=== PATIENT | female | born 1990 | race Hispanic/Latino ===

== ENCOUNTER 2018-10-16 10:47 | Emergency (ER) | payer MEDICAID ==
[2018-10-16 12:44] LABS: HCG Qualitative,Urine Negative (Negative)
[2018-10-16 12:47] LABS: Basophils % (Auto) 0.2 % (0.0-1.8); Eosinophils # (Auto) 0.1 K/mm3 (0.0-0.4); Eosinophils % (Auto) 0.8 % (0.0-4.3); Hematocrit 39.7 % (30.3-42.9); Hemoglobin 13.6 gm/dl (10.1-14.3); Lymphocytes # (Auto) 2.1 K/mm3 (1.2-5.4); Lymphocytes % (Auto) 13.7 % (13.4-35.0); Mean Corpuscular HGB Conc 34 % (30-34); Mean Corpuscular Volume 90 fl (79-97); Monocytes # (Auto) 1.2 K/mm3 (0.0-0.8); Monocytes % (Auto) 7.9 % (0.0-7.3); Platelet Count 310 K/mm3 (140-440); Red Cell Distribution Width 13.5 % (13.2-15.2)
[2018-10-16] MEDS ORDERED: NACL 0.9% 1000 ML 1,000 ML IV ONE ×2 (12:50→12:53)
[2018-10-16] MEDS ORDERED: SUBLIMAZE IV ONE (12:50)
[2018-10-16] MEDS ORDERED: ZOFRAN IV ONE (12:50)
[2018-10-16 12:51] LABS: Bacteria,Urine 1+ /HPF (Negative); Bilirubin,Urine NEG (Negative); Blood,Urine NEG (Negative); Color,Urine Yellow (Yellow); Mucus,Urine FEW /HPF; Protein,Urine <15 mg/dL mg/dL (Negative); Urobilinogen,Urine < 2.0 mg/dL (<2.0)
--- NOTE | 2018-10-16 12:56 | Emergency Department Report ---
HPI - General Chief Complaint: Abdominal Pain Time Seen by Provider: 10/16/18 12:41 - HPI HPI: Room 24 The patient is a 28-year-old female presented with a chief complaint of abdominal pain. The patient has history of Crohn's disease and states she was placed on a steroid taper last week. Patient states the past 3 days if symptoms return which includes nausea vomiting or inability to tolerate anything by mouth and frequent diarrhea. Patient admits to chills and subjective fever. The patient states she developed dizziness last night causing her to fall down the stairs. 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 - Family History Family history: no significant - Social History Smoking Status: Never Smoker Substance Use Type: None (denies illicit drug use), Alcohol (occasional) - Medications Home Medications: Home Medications Medication Instructions Recorded Confirmed Last Taken Type Norethindrone AC-Eth Estradiol 1 each PO DAILY 02/21/16 04/21/16 07/09/16 History [Junel 1.5 mg-30 Mcg Tablet] levETIRAcetam [Keppra TAB] 1,000 mg PO BID 30 Days tablet 04/24/16 Unknown Rx Famotidine [Pepcid] 20 mg PO BID #20 tablet 07/10/16 Unknown Rx HYDROcodone/APAP 5-325 [[place] 1 each PO Q6HR PRN #10 tablet 07/10/16 Unknown Rx 5/325] Metoclopramide HCl [Reglan TAB] 5 mg PO BID PRN #20 tablet 07/10/16 Unknown Rx Ondansetron [Zofran Odt] 4 mg PO Q8H PRN #10 tab.rapdis 07/10/16 Unknown Rx Amoxicillin 500 mg PO BID #14 capsule 10/16/18 Unknown Rx Diphenoxylate/Atropine [Lomotil] 2 tab PO QID PRN #20 tablet 10/16/18 Unknown Rx HYDROcodone/APAP 5-325 [[place] 1 - 2 each PO Q6HR PRN #14 tablet 10/16/18 Unknown Rx 5/325] Ondansetron [Zofran ODT TAB] 8 mg PO Q8HR #20 tab.rapdis 10/16/18 Unknown Rx ED Review of Systems ROS: Stated complaint: CROHN'S FLARE UP Other details as noted in HPI Constitutional: chills, fever (subjective) Eyes: denies: eye pain ENT: dental pain Respiratory: no symptoms reported Cardiovascular: denies: chest pain Endocrine: no symptoms reported Gastrointestinal: abdominal pain, nausea, vomiting, diarrhea Genitourinary: denies: dysuria Musculoskeletal: back pain Neurological: denies: headache Physical Exam - Physical Exam Vital Signs: Vital Signs 10/16/18 11:05 Temperature 98.3 F Pulse Rate 113 H Respiratory 20 Rate Blood Pressure 130/74 O2 Sat by Pulse 95 Oximetry Physical Exam: GENERAL: The patient is well-developed well-nourished female lying on stretcher not appearing to be in acute distress. [] HEENT: Normocephalic. Atraumatic. Extraocular motions are intact. Patient has moist mucous membranes. Broken tooth #32 NECK: Supple. Trachea midline CHEST/LUNGS: Clear to auscultation. There is no respiratory distress noted. HEART/CARDIOVASCULAR: Regular. There is no tachycardia. There is no gallop rub or murmur. ABDOMEN: Abdomen is soft, with tenderness to palpation in the midepigastric, left upper quadrant and left lower quadrant. Patient has normal bowel sounds. There is no abdominal distention. SKIN: There is no rash. There is no edema. There is no diaphoresis. NEURO: The patient is awake, alert, and oriented. The patient is cooperative. The patient has normal speech MUSCULOSKELETAL: There is no evidence of acute injury. ED Course Vital Signs 10/16/18 11:05 Temperature 98.3 F Pulse Rate 113 H Respiratory 20 Rate Blood Pressure 130/74 O2 Sat by Pulse 95 Oximetry ED Medical Decision Making - Lab Data Result diagrams: 10/16/18 12:15 10/16/18 12:12 Laboratory Tests 10/16/18 10/16/18 10/16/18 12:12 12:14 12:14 WBC RBC Hgb Hct MCV MCH MCHC RDW Plt Count Lymph % (Auto) Brooke % (Auto) Eos % (Auto) Baso % (Auto) Lymph # Brooke # Eos # Baso # Seg Neutrophils % Seg Neutrophils # Sodium 137 Potassium 4.0 Chloride 103.4 Carbon Dioxide 21 L Anion Gap 17 BUN 7 Creatinine 0.5 L Estimated GFR > 60 BUN/Creatinine Ratio 14 Glucose 99 Calcium 9.0 Total Bilirubin 0.60 AST 13 ALT 20 Alkaline Phosphatase 89 Total Protein 7.5 Albumin 4.0 Albumin/Globulin Ratio 1.1 Urine Color Yellow Urine Turbidity Clear Urine pH 5.0 Ur Specific Reynolds 1.021 Urine Protein <15 mg/dl Urine Glucose (UA) Neg Urine Ketones Neg Urine Blood Neg Urine Nitrite Neg Urine Bilirubin Neg Urine Urobilinogen < 2.0 Ur Leukocyte Esterase Neg Urine WBC (Auto) 4.0 Urine RBC (Auto) 3.0 U Epithel Cells (Auto) 4.0 Urine Bacteria (Auto) 1+ Urine Mucus Few Urine HCG, Qual Negative 10/16/18 12:15 WBC 15.5 H RBC 4.40 Hgb 13.6 Hct 39.7 MCV 90 MCH 31 MCHC 34 RDW 13.5 Plt Count 310 Lymph % (Auto) 13.7 Brooke % (Auto) 7.9 H Eos % (Auto) 0.8 Baso % (Auto) 0.2 Lymph # 2.1 Brooke # 1.2 H Eos # 0.1 Baso # 0.0 Seg Neutrophils % 77.4 H Seg Neutrophils # 12.0 H Sodium Potassium Chloride Carbon Dioxide Anion Gap BUN Creatinine Estimated GFR BUN/Creatinine Ratio Glucose Calcium Total Bilirubin AST ALT Alkaline Phosphatase Total Protein Albumin Albumin/Globulin Ratio Urine Color Urine Turbidity Urine pH Ur Specific Reynolds Urine Protein Urine Glucose (UA) Urine Ketones Urine Blood Urine Nitrite Urine Bilirubin Urine Urobilinogen Ur Leukocyte Esterase Urine WBC (Auto) Urine RBC (Auto) U Epithel Cells (Auto) Urine Bacteria (Auto) Urine Mucus Urine HCG, Qual - Radiology Data Radiology results: report reviewed (CT abdomen and pelvis), image reviewed (CT abdomen and pelvis) [facility] [address] [place] [address] Cat Scan Report Signed Patient: ABDIRAHMAN KITCHEN MR#: [id number] : 1990 Acct:[id number] Age/Sex: 28 / F ADM Date: 10/16/18 Loc: ED Attending Dr: Ordering Physician: PAUL BADILLO MD Date of Service: 10/16/18 Procedure(s): CT abdomen pelvis wo con Accession Number(s): [id number] cc: PAUL BADILLO MD FINAL REPORT EXAM: CT ABDOMEN PELVIS WO CON HISTORY: left-sided abdominal pain. History of Crohn's COMPARISON: None. TECHNIQUE: Multiple contiguous axial images were obtained from the lung bases to the pubic symphysis without administration of IV contrast. Reformatted sagittal and coronal images were available for review. FINDINGS: Lung bases: Normal. Visualized heart and mediastinum: Normal noncontrast appearance. Liver: Normal noncontrast appearance. Spleen: Normal noncontrast appearance. 1.6 centimeter accessory splenule. Pancreas: Normal noncontrast appearance. Gallbladder and Biliary Tree: The gallbladder is surgically absent. There is no biliary ductal dilatation. Adrenal glands: Normal. Kidneys: Normal. No renal or ureteral calcifications. No hydronephrosis. Bladder: Normal. Pelvic organs: Normal. Bowel: No focal wall thickening. No evidence of obstruction. Normal appendix wi thout surrounding inflammatory change. Peritoneum: No significant mesenteric adenopathy. No free air or free fluid. Vasculature: Normal appearance of the abdominal aorta, inferior vena cava, and portal venous system. No suspicious osseous lesions. No acute fracture or dislocation. Bones and soft tissues: No suspicious osseous lesions. No acute fracture or dislocation. Soft tissues are normal. IMPRESSION: No acute intra-abdominal pathology. No evidence for bowel obstruction. No focal wall thickening or inflammatory change. Transcribed By: LOKESH Dictated By: SAUL SALINAS MD Electronically Authenticated By: SAUL SALINAS MD Signed Date/Time: 10/16/18 135 DD/ 52 TD/TT: 10/16/18 1353 - Differential Diagnosis Crohn's flare, small bowel obstruction, gastroenteritis, UTI Critical care attestation.: If time is entered above; I have spent that time in minutes in the direct care of this critically ill patient, excluding procedure time. ED Disposition Clinical Impression: Acute abdominal pain, Crohns disease, Nausea vomiting and diarrhea Disposition: TO HOME OR SELFCARE Is pt being admited?: No Does the pt Need Aspirin: No Condition: Stable Instructions: Abdominal Pain (ED) Additional Instructions: Return to the emergency department immediately should you develop worsening symptoms, fever, inability to tolerate food or liquid or any other concerns. Prescriptions: Amoxicillin 500 mg PO BID #14 capsule Diphenoxylate/Atropine [Lomotil] 2 tab PO QID PRN #20 tablet PRN Reason: Diarrhea HYDROcodone/APAP 5-325 [Rich[place] 5/325] 1 - 2 each PO Q6HR PRN #14 tablet PRN Reason: Pain Ondansetron [Zofran ODT TAB] 8 mg PO Q8HR #20 tab.gardenia Referrals: [facility] MD ANTONIA [Primary Care Provider] - 3-5 Days CORNELIO VICENTE MD [Staff Physician] - 3-5 Days Time of Disposition: 14:42
[2018-10-16 13:08] LABS: Alanine Aminotransferase 20 units/L (7-56); BUN/Creatinine Ratio 14; Blood Urea Nitrogen 7 mg/dL (7-17); Hemolysis Index 23
[2018-10-16] MEDS ORDERED: DILAUDID IV ONE (13:37)
--- NOTE | 2018-10-16 13:55 | Cat Scan Report ---
FINAL REPORT EXAM: CT ABDOMEN PELVIS WO CON HISTORY: left-sided abdominal pain. History of Crohn's COMPARISON: None. TECHNIQUE: Multiple contiguous axial images were obtained from the lung bases to the pubic symphysis without administration of IV contrast. Reformatted sagittal and coronal images were available for re view. FINDINGS: Lung bases: Normal. Visualized heart and mediastinum: Normal noncontrast appearance. Liver: Normal noncontrast appearance. Spleen: Normal noncontrast appearance. 1.6 centimeter accessory splenule. Pancreas: Normal noncontrast appearance. Gallbladder and Biliary Tree: The gallbladder is surgically absent. There is no biliary ductal dilata tion. Adrenal glands: Normal. Kidneys: Normal. No renal or ureteral calcifications. No hydronephrosis. Bladder: Normal. Pelvic organs: Normal. Bowel: No focal wall thickening. No evidence of obstruction. Normal appendix without surrounding infl ammatory change. Peritoneum: No significant mesenteric adenopathy. No free air or free fluid. Vasculature: Normal appearance of the abdominal aorta, inferior vena cava, and portal venous system. No suspicious osseous lesions. No acute fracture or dislocation. Bones and soft tissues: No suspicious osseous lesions. No acute fracture or dislocation. Soft tissues are normal. IMPRESSION: No acute intra-abdominal pathology. No evidence for bowel obstruction. No focal wall thickening or inflammatory change.
[2018-10-16 14:22] VITALS: BP 124/82
== END 2018-10-16 14:50 | disposition home or self-care (01) ==
LOC: ED 10:47
DX: K50.90 Crohn's disease, unspecified, without complications (principal); F41.9 Anxiety disorder, unspecified; J45.909 Unspecified asthma, uncomplicated; Z90.49 Acquired absence of other specified parts of digestive tract; Z88.1 Allergy status to other antibiotic agents; Z91.09 Other allergy status, other than to drugs and biological substances
CPT/HCPCS: 36415; 74176; 80053; 81001; 81025; 85025; 96361; 96374; 96375; 99284; J1170; J2405; J3010; J7030

== ENCOUNTER 2018-10-16 19:33 | Inpatient (IN) | payer MEDICAID ==
[2018-10-16] MEDS ORDERED: NACL 0.9% 500 ML 500 ML IV ONE (19:50)
[2018-10-16 20:32] LABS: Basophils # (Auto) 0.2 K/mm3 (0.0-0.1); Hematocrit 37.5 % (30.3-42.9); Hemoglobin 12.7 gm/dl (10.1-14.3); Lymphocytes # (Auto) 0.8 K/mm3 (1.2-5.4); Lymphocytes % (Auto) 4.2 % (13.4-35.0); Mean Corpuscular HGB Conc 34 % (30-34); Mean Corpuscular Volume 91 fl (79-97); Monocytes # (Auto) 0.9 K/mm3 (0.0-0.8); Monocytes % (Auto) 5.3 % (0.0-7.3); Platelet Count 305 K/mm3 (140-440); Red Blood Count 4.15 M/mm3 (3.65-5.03); Red Cell Distribution Width 13.6 % (13.2-15.2)
--- NOTE | 2018-10-16 20:37 | Emergency Department Report ---
ED ENT HPI - General Chief complaint: Nausea/Vomiting/Diarrhea Stated complaint: GENERAL SICKNESS Time Seen by Provider: 10/16/18 20:21 Source: patient, EMS Mode of arrival: Stretcher Limitations: No Limitations - History of Present Illness Initial comments: Patient complained of right jaw pain and swelling for the past 2 days. She also complained of fever with chills and nausea with vomiting. Patient was seen in the emergency room today and was discharged home. She said when she got home she could not keep anything down since she kept vomiting and jaw swelling swelling has increased in size and is more painful with difficulty swallowing. MD complaint: other (Right Jaw pain and swelling) -: days(s) (2 days) Location: other (Right jaw) Severity: severe Severity scale (0 -10): 10 Quality: sharp, constant Consistency: constant Improves with: none Worsens with: none Context- Dental: history of dental caries Associated Symptoms: fever, toothache, pain with swallowing - Related Data Home Medications Medication Instructions Recorded Confirmed Last Taken Norethindrone AC-Eth Estradiol 1 each PO DAILY 02/21/16 04/21/16 07/09/16 [Junel 1.5 mg-30 Mcg Tablet] Previous Rx's Medication Instructions Recorded Last Taken Type levETIRAcetam [Keppra TAB] 1,000 mg PO BID 30 Days tablet 04/24/16 Unknown Rx Famotidine [Pepcid] 20 mg PO BID #20 tablet 07/10/16 Unknown Rx HYDROcodone/APAP 5-325 [Start 1 each PO Q6HR PRN #10 tablet 07/10/16 Unknown Rx 5/325] Metoclopramide HCl [Reglan TAB] 5 mg PO BID PRN #20 tablet 07/10/16 Unknown Rx Ondansetron [Zofran Odt] 4 mg PO Q8H PRN #10 tab.rapdis 07/10/16 Unknown Rx Amoxicillin 500 mg PO BID #14 capsule 10/16/18 Unknown Rx Diphenoxylate/Atropine [Lomotil] 2 tab PO QID PRN #20 tablet 10/16/18 Unknown Rx HYDROcodone/APAP 5-325 [Start 1 - 2 each PO Q6HR PRN #14 tablet 10/16/18 Unknown Rx 5/325] Ondansetron [Zofran ODT TAB] 8 mg PO Q8HR #20 tab.rapdis 10/16/18 Unknown Rx Allergies Allergy/AdvReac Type Severity Reaction Status Date / Time promethazine HCl Allergy Unknown Verified 08/16/14 23:19 [From Phenergan] lorazepam [From Ativan] AdvReac Seizure Verified 04/21/16 15:07 mushroom AdvReac Unknown Verified 02/21/16 21:26 ct dye Allergy Swelling Uncoded 05/12/14 21:45 corn beef AdvReac Unknown Uncoded 02/21/16 21:26 ED Dental HPI - General Chief complaint: Nausea/Vomiting/Diarrhea Stated complaint: GENERAL SICKNESS Time Seen by Provider: 10/16/18 20:21 Source: patient, EMS Mode of arrival: Stretcher Limitations: No Limitations - Related Data Home Medications Medication Instructions Recorded Confirmed Last Taken Norethindrone AC-Eth Estradiol 1 each PO DAILY 02/21/16 04/21/16 07/09/16 [Junel 1.5 mg-30 Mcg Tablet] Previous Rx's Medication Instructions Recorded Last Taken Type levETIRAcetam [Keppra TAB] 1,000 mg PO BID 30 Days tablet 04/24/16 Unknown Rx Famotidine [Pepcid] 20 mg PO BID #20 tablet 07/10/16 Unknown Rx HYDROcodone/APAP 5-325 [Start 1 each PO Q6HR PRN #10 tablet 07/10/16 Unknown Rx 5/325] Metoclopramide HCl [Reglan TAB] 5 mg PO BID PRN #20 tablet 07/10/16 Unknown Rx Ondansetron [Zofran Odt] 4 mg PO Q8H PRN #10 tab.rapdis 07/10/16 Unknown Rx Amoxicillin 500 mg PO BID #14 capsule 10/16/18 Unknown Rx Diphenoxylate/Atropine [Lomotil] 2 tab PO QID PRN #20 tablet 10/16/18 Unknown Rx HYDROcodone/APAP 5-325 [Start 1 - 2 each PO Q6HR PRN #14 tablet 10/16/18 Unknown Rx 5/325] Ondansetron [Zofran ODT TAB] 8 mg PO Q8HR #20 tab.rapdis 10/16/18 Unknown Rx Allergies Allergy/AdvReac Type Severity Reaction Status Date / Time promethazine HCl Allergy Unknown Verified 08/16/14 23:19 [From Phenergan] lorazepam [From Ativan] AdvReac Seizure Verified 04/21/16 15:07 mushroom AdvReac Unknown Verified 02/21/16 21:26 ct dye Allergy Swelling Uncoded 05/12/14 21:45 corn beef AdvReac Unknown Uncoded 02/21/16 21:26 ED Review of Systems ROS: Stated complaint: GENERAL SICKNESS Other details as noted in HPI Comment: All other systems reviewed and negative Constitutional: denies: chills, fever Eyes: denies: eye pain, eye discharge, vision change ENT: dental pain, other (Right pain and swelling). denies: ear pain, throat pain Respiratory: denies: cough, shortness of breath, SOB with exertion, SOB at rest, wheezing Cardiovascular: denies: chest pain, palpitations Endocrine: no symptoms reported Gastrointestinal: denies: abdominal pain, nausea, diarrhea Genitourinary: denies: urgency, dysuria, discharge Musculoskeletal: denies: back pain, joint swelling, arthralgia Skin: denies: rash, lesions Neurological: headache. denies: weakness, paresthesias Psychiatric: denies: anxiety, depression Hematological/Lymphatic: denies: easy bleeding, easy bruising ED Past Medical Hx - Past Medical History Previous Medical History?: Yes Hx Congestive Heart Failure: No Hx Diabetes: No Hx Seizures: Yes Hx Psychiatric Treatment: Yes (anxiety) Hx Asthma: Yes Hx COPD: No Hx HIV: No Additional medical history: crohn's - Surgical History Hx Cholecystectomy: Yes Additional Surgical History: cornea transplant L eye - Social History Smoking Status: Never Smoker Substance Use Type: Alcohol - Medications Home Medications: Home Medications Medication Instructions Recorded Confirmed Last Taken Type Norethindrone AC-Eth Estradiol 1 each PO DAILY 02/21/16 04/21/16 07/09/16 History [Junel 1.5 mg-30 Mcg Tablet] levETIRAcetam [Keppra TAB] 1,000 mg PO BID 30 Days tablet 04/24/16 Unknown Rx Famotidine [Pepcid] 20 mg PO BID #20 tablet 07/10/16 Unknown Rx HYDROcodone/APAP 5-325 [Start 1 each PO Q6HR PRN #10 tablet 07/10/16 Unknown Rx 5/325] Metoclopramide HCl [Reglan TAB] 5 mg PO BID PRN #20 tablet 07/10/16 Unknown Rx Ondansetron [Zofran Odt] 4 mg PO Q8H PRN #10 tab.rapdis 07/10/16 Unknown Rx Amoxicillin 500 mg PO BID #14 capsule 10/16/18 Unknown Rx Diphenoxylate/Atropine [Lomotil] 2 tab PO QID PRN #20 tablet 10/16/18 Unknown Rx HYDROcodone/APAP 5-325 [Start 1 - 2 each PO Q6HR PRN #14 tablet 10/16/18 Unknown Rx 5/325] Ondansetron [Zofran ODT TAB] 8 mg PO Q8HR #20 tab.rapdis 10/16/18 Unknown Rx ED Physical Exam - General Limitations: No Limitations General appearance: alert, in distress (Patient is crying.), other (Febrile) - Head Head exam: Present: atraumatic, normocephalic, other (Right mandibular swelling with tenderness to palpation.) - Eye Eye exam: Present: normal appearance, PERRL, EOMI. Absent: scleral icterus Pupils: Present: normal accommodation - ENT ENT exam: Present: normal orophraynx, mucous membranes moist - Neck Neck exam: Present: normal inspection, tenderness, full ROM - Respiratory Respiratory exam: Present: normal lung sounds bilaterally. Absent: respiratory distress, wheezes, rales, rhonchi - Cardiovascular Cardiovascular Exam: Present: normal rhythm, tachycardia, normal heart sounds. Absent: systolic murmur, diastolic murmur, rubs, gallop - GI/Abdominal GI/Abdominal exam: Present: soft, normal bowel sounds - Extremities Exam Extremities exam: Present: normal inspection, full ROM, normal capillary refill - Back Exam Back exam: Present: normal inspection, full ROM - Neurological Exam Neurological exam: Present: alert, oriented X3 - Psychiatric Psychiatric exam: Present: normal affect, normal mood - Skin Skin exam: Present: warm, dry, intact, normal color. Absent: rash ED Course Vital Signs 10/16/18 10/16/18 19:37 22:32 Temperature 102.6 F H 99.7 F H Pulse Rate 144 H 121 H Respiratory 18 18 Rate Blood Pressure 132/60 114/72 [Left] O2 Sat by Pulse 95 99 Oximetry - Consultations Consultation #1: 10/16/18 23:26 Dr Marin who is the hospitalist balloon seller will admit patient. ED Medical Decision Making - Lab Data Result diagrams: 10/16/18 20:12 02/16/19 20:12 Lab Results 10/16/18 10/16/18 10/16/18 Range/Units 20:12 20:12 20:12 WBC 18.0 H (4.5-11.0) K/mm3 RBC 4.15 (3.65-5.03) M/mm3 Hgb 12.7 (10.1-14.3) gm/dl Hct 37.5 (30.3-42.9) % MCV 91 (79-97) fl MCH 31 (28-32) pg MCHC 34 (30-34) % RDW 13.6 (13.2-15.2) % Plt Count 305 (140-440) K/mm3 Lymph % (Auto) 4.2 L (13.4-35.0) % Meigs % (Auto) 5.3 (0.0-7.3) % Eos % (Auto) 0.0 (0.0-4.3) % Baso % (Auto) 1.0 (0.0-1.8) % Lymph # 0.8 L (1.2-5.4) K/mm3 Meigs # 0.9 H (0.0-0.8) K/mm3 Eos # 0.0 (0.0-0.4) K/mm3 Baso # 0.2 H (0.0-0.1) K/mm3 Seg Neutrophils % 89.5 H (40.0-70.0) % Seg Neutrophils # 16.2 H (1.8-7.7) K/mm3 PT 13.9 (12.2-14.9) Sec. INR 1.01 (0.87-1.13) VBG pH (7.320-7.420) Sodium 138 (137-145) mmol/L Potassium 4.0 (3.6-5.0) mmol/L Chloride 102.5 (98-107) mmol/L Carbon Dioxide 22 (22-30) mmol/L Anion Gap 18 mmol/L BUN 8 (7-17) mg/dL Creatinine 0.7 (0.7-1.2) mg/dL Estimated GFR > 60 ml/min BUN/Creatinine Ratio 11 % Glucose 113 H (65-100) mg/dL Lactic Acid (0.7-2.0) mmol/L [place]cium 9.0 (8.4-10.2) mg/dL Total Bilirubin 0.90 (0.1-1.2) mg/dL AST 13 (5-40) units/L ALT 19 (7-56) units/L Alkaline Phosphatase 99 (35-129) units/L Total Protein 6.9 (6.3-8.2) g/dL Albumin 4.1 (3.9-5) g/dL Albumin/Globulin Ratio 1.5 % HCG, Qual (Negative) 10/16/18 10/16/18 10/16/18 Range/Units 20:12 20:12 20:12 WBC (4.5-11.0) K/mm3 RBC (3.65-5.03) M/mm3 Hgb (10.1-14.3) gm/dl Hct (30.3-42.9) % MCV (79-97) fl MCH (28-32) pg MCHC (30-34) % RDW (13.2-15.2) % Plt Count (140-440) K/mm3 Lymph % (Auto) (13.4-35.0) % Meigs % (Auto) (0.0-7.3) % Eos % (Auto) (0.0-4.3) % Baso % (Auto) (0.0-1.8) % Lymph # (1.2-5.4) K/mm3 Meigs # (0.0-0.8) K/mm3 Eos # (0.0-0.4) K/mm3 Baso # (0.0-0.1) K/mm3 Seg Neutrophils % (40.0-70.0) % Seg Neutrophils # (1.8-7.7) K/mm3 PT (12.2-14.9) Sec. INR (0.87-1.13) VBG pH 7.435 H (7.320-7.420) Sodium (137-145) mmol/L Potassium (3.6-5.0) mmol/L Chloride (98-107) mmol/L Carbon Dioxide (22-30) mmol/L Anion Gap mmol/L BUN (7-17) mg/dL Creatinine (0.7-1.2) mg/dL Estimated GFR ml/min BUN/Creatinine Ratio % Glucose (65-100) mg/dL Lactic Acid 1.50 (0.7-2.0) mmol/L Calcium (8.4-10.2) mg/dL Total Bilirubin (0.1-1.2) mg/dL AST (5-40) units/L ALT (7-56) units/L Alkaline Phosphatase (35-129) units/L Total Protein (6.3-8.2) g/dL Albumin (3.9-5) g/dL Albumin/Globulin Ratio % HCG, Qual Negative (Negative) - EKG Data -: EKG Interpreted by Me EKG shows normal: sinus rhythm Rate: tachycardia (131) - EKG Data When compared to previous EKG there are: previous EKG unavailable Interpretation: nonspecific ST-T wave eleazar 10/16/18 21:21 No STEMI. - Radiology Data Radiology results: report reviewed, image reviewed CT Neck without contrast showed inflammation of the right submandibular space. - Medical Decision Making Sepsis. Submandibular space infection. Tachycardia. Intractable Nausea and vomiting. Patient will be admitted for IV antibiotics and further management. Critical Care Time: Yes Critical care time in (mins) excluding proc time.: 45 Critical care attestation.: If time is entered above; I have spent that time in minutes in the direct care of this critically ill patient, excluding procedure time. ED Disposition Clinical Impression: Submandibular gland inflammation, Submandibular gland infection, Tachycardia Sepsis Qualifiers: Sepsis type: sepsis due to unspecified organism Qualified Code(s): A41.9 - Sepsis, unspecified organism Fever Qualifiers: Fever type: unspecified Qualified Code(s): R50.9 - Fever, unspecified Intractable nausea and vomiting Qualifiers: Vomiting type: unspecified Qualified Code(s): R11.2 - Nausea with vomiting, unspecified Disposition: OP ADMIT IP TO THIS HOSP Is pt being admited?: Yes Does the pt Need Aspirin: No Condition: Stable Referrals: PRIMARY CARE,MD [Primary Care Provider] - 3-5 Days Time of Disposition: 23:23
[2018-10-16 20:39] LABS: INR 1.01 (0.87-1.13)
[2018-10-16] MEDS ORDERED: NACL 0.9% 1000 ML 1,000 ML IV ONE ×3 (20:41→21:22)
[2018-10-16] MEDS ORDERED: TYLENOL PR ONE (20:41)
[2018-10-16] MEDS ORDERED: CLEOCIN 900 MG/50 mL 900 MG/50 ML BAG IV ONE (20:42)
[2018-10-16] MEDS ORDERED: REGLAN IV ONE (20:42)
[2018-10-16] MEDS ORDERED: MORPHINE IV ONE (20:42)
[2018-10-16 20:50] LABS: Alanine Aminotransferase 19 units/L (7-56); Albumin 4.1 g/dL (3.9-5); BUN/Creatinine Ratio 11; Blood Urea Nitrogen 8 mg/dL (7-17); Hemolysis Index 5
[2018-10-16] MEDS ORDERED: DECADRON IV ONE (21:20)
--- NOTE | 2018-10-16 22:35 | Cat Scan Report ---
FINAL REPORT EXAM: CT NECK WO CON HISTORY: Right Jaw Swelling TECHNIQUE: Axial helical imaging through the neck with sagittal and coronal reformatted images obtai nieves. Comparison: None FINDINGS: The right submandibular gland appears to be mildly enlarged. There is no evidence of a stone in the s ubmandibular gland nor in the submandibular gland duct. There is stranding of the adjacent fat. There appears to be extension of the inflammatory change/fifi a into the right submandibular space. There are mildly prominent bilateral cervical lymph nodes. The largest appears to be inferior to the right mandible and measures approximately 1.5 centimeters in size. There is no evidence of compromise of the airway. The epiglottis and aryepiglottic folds are normal thickness. The bony structures are unremarkable. IMPRESSION: 1. Evaluation of the cervical soft tissues is limited by lack of IV contrast. 2. Evidence of sialoadenitis involving the right submandibular gland with inflammatory changes in the adjacent soft tissues and the appearance of extension into the deep soft tissues of the face in the region of the right submandibular space. 3. Prominent bilateral cervical lymph nodes, right greater than left. If further imaging is required, CT with IV contrast may be helpful for further evaluation.
[2018-10-17 00:13] LABS: Bacteria,Urine 1+ /HPF (Negative); Bilirubin,Urine NEG (Negative); Blood,Urine NEG (Negative); Color,Urine Yellow (Yellow); Mucus,Urine FEW /HPF; Protein,Urine <15 mg/dL mg/dL (Negative); Urobilinogen,Urine < 2.0 mg/dL (<2.0)
[2018-10-17] MEDS: NACL 0.9% 1000 ML 1,000 ML IV SCH ×4 (01:19→21:37)
[2018-10-17] MEDS: HEPARIN SUB-Q SCH ×3 (01:19→21:34)
[2018-10-17] MEDS: ZOFRAN IV PRN (01:44)
[2018-10-17] MEDS: MORPHINE IV PRN ×3 (01:45→19:41)
--- NOTE | 2018-10-17 06:12 | History and Physical Report ---
CHIEF COMPLAINT: Pain or swelling on the right side of the jaw. HISTORY OF PRESENT ILLNESS: The patient is a 28-year-old female, who presented to the Emergency Room initially with complaint of abdominal pain, was seen and discharged and at that time, the patient states she was feeling some discomfort on the right side of the jaw. When she got home, she started feeling the swelling getting bigger and then she developed fever and chills and nausea and vomiting and was unable to keep anything down because of jaw swelling and nausea and vomiting. The jaw swelling kept getting more and more painful and led the patient to come back to the Emergency Room. There was no history of chest pain, no history of shortness of breath. No history of cough. The patient was evaluated and recommended for admission because of the swelling in the jaw. PAST MEDICAL HISTORY: Pertinent for Crohn's disease. The patient's past medical history also includes anxiety disorder, asthma and seizure disorder. 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 ALLERGIES: THE PATIENT IS ALLERGIC TO PROMETHAZINE, HYDROCHLORIDE, LORAZEPAM, MUSHROOM, . REVIEW OF SYSTEM: CONSTITUTIONAL: There is fever and there are chills with no diaphoresis. HEENT: There is no headache or sore throat. There is pain in the right jaw area and there is swelling in the right jaw area. CARDIOVASCULAR SYSTEM: There is no chest pain, orthopnea. RESPIRATORY SYSTEM: There is no shortness of breath or cough. GASTROINTESTINAL SYSTEM: There is nausea and vomiting and there is dysphagia, difficulty in swallowing. There is also abdominal pain with no diarrhea. No constipation. NEUROLOGICAL SYSTEM: There is no numbness, no dizziness, no altered mental status. MUSCULOSKELETAL SYSTEM: There is no joint pain or swelling. DERMATOLOGICAL SYSTEM: There is no skin rash or itching. GENITOURINARY SYSTEM: There is no dysuria, hematuria or flank pain. Rest of system review is normal. PHYSICAL EXAMINATION: GENERAL: At the time of exam, the patient was found to be alert, oriented x 3 and in mild distress due to jaw pain. VITAL SIGNS: At initial time of presentation showed temperature of 102.6 degrees Fahrenheit, pulse of 144, respiration 18, blood pressure 132/60, O2 sat of 95% on room air. HEENT: Showed pupils to be equal, round, reactive to light and accommodation. Extraocular muscles are intact. The patient's right jaw area is swollen, tender to touch and the patient has dental caries involving cavity in the right lower molar teeth areas. NECK: Supple with no JVD or carotid bruit. There is extension of the jaw swelling on the right side down to the leg with tenderness. CARDIOVASCULAR SYSTEM: Showed normal first and second heart sounds with no gallops or murmur. RESPIRATORY SYSTEM: Show good air entry on both sides of the lung with no abnormal breath sounds. GASTROINTESTINAL SYSTEM: Show abdomen to be full, soft, nontender with no organomegaly or rigidity. NEUROLOGIC: Shows no focal deficit. MUSCULOSKELETAL SYSTEM: Show no joint swelling or tenderness. DERMATOLOGIC SYSTEM: Show no skin rash. GENITOURINARY SYSTEM: Showing no costovertebral angle tenderness. PERTINENT LABORATORY AND IMAGING STUDIES: The patient has CT of the neck that shows evidence of sialadenitis involving the right submandibular gland with inflammatory changes in the adjacent soft tissue and the appearance of extension into the deep soft tissue of the face in the region of the right submandibular space. Also, the CT of the neck show prominent bilateral cervical inflow right greater than left and the radiologist say for that imaging is via CT with IV contrast will be helpful. The patient had chest done that was no reported as showing any abnormality. Lab results: The patient has CBC done with elevated white count of 18,000 with normal hemoglobin and normal hematocrit and with CBC differential showing high segmented neutrophil of 89.5%. The patient's coagulation studies were unremarkable and the chemistry was unremarkable. The patient's urinalysis show trace urine, leukocyte esterase with normal urine wbc's and negative urine nitrite and 1+ urine bacteria. DIAGNOSES: 1. Right submandibular gland infection. 2. Right submandibular gland mass. 3. Sepsis. PLAN OF CARE: 1. The patient will be admitted to telemetry. 2. The patient will be on IV clindamycin 900 mg q. 12 hours. Also, the patient will be on IV ceftriaxone 1 gram daily. 3. The patient will be on Tylenol 650 mg by mouth every 4 hours for fever and headache and DVT prophylaxis will be through heparin 5000 units subcutaneous q. 12 hours. 4. The patient will be on IV morphine 2 mg q. 3 hours as needed for pain. 5. The patient will be on IV Zofran 4 mg every 8 hours as needed for nausea and vomiting. 6. The patient will be on IV normal saline running at 150 mL an hour. 7. The patient's diet will be clear liquid diet, which will be advanced to a regular diet as tolerated. 8. The patient will be on IV Zofran 4 mg every 8 hours as needed for nausea and vomiting. [facility]# [id number] OCN/NTS MTDD
[2018-10-17] MEDS: CLEOCIN 900 MG/50 mL 900 MG/50 ML BAG IV SCH ×2 (10:00→21:33)
[2018-10-17] MEDS: ROCEPHIN/NS 1 GM/50 ML 1 GM/50 ML BAG IV SCH (10:04)
[2018-10-17] MEDS: PEPCID PO SCH ×2 (11:38→21:34)
[2018-10-17] MEDS: KEPPRA PO SCH ×2 (11:38→21:33)
[2018-10-17] MEDS ORDERED: PNEUMOVAX 23 IM ONE (12:00)
[2018-10-17] MEDS ORDERED: AFLURIA QUAD 2018-2019 SYRINGE IM ONE (12:00)
--- NOTE | 2018-10-17 17:55 | Progress Note ---
Assessment and Plan Assessment and plan: --Right submandibular gland infection/cellulitis Continue Rocephin and clindamycin, pain medications and supportive care Patient has no difficulty breathing, no stridor, no dysphagia Tolerating full liquid diet, supportive care Patient needs evaluation by ENT/facial surgeon. Services not available Will consult ENT and If not available we will try to transfer the patient --Febrile illness/sepsis; secondary to infectious process Continue antibiotics, follow cultures, ID evaluation if needed --h/o tooth infection; continue antibiotics, patient needs to follow with dentist upon discharge, dental services not available, Chloroceptic throat spray as needed --Urinary Tract infection; continue current antibiotics follow cultures --Morbid obesity; BMI 42.6, patient advised weight reduction and medically stable --DVT prophylaxis; Lovenox Closely monitor the patient and adjust the management as needed History Interval history: Patient was seen and examined medical records reviewed Admitted with submandibular swelling and cellulitis, on IV antibiotics Patient feels slightly better,Tolerating full liquid diet Maximum temperature 102, Afebrile now Patient has no shortness of breath, no stridor Hospitalist Physical - Constitutional Vitals: Temp Pulse Resp BP Pulse Ox 97.7 F 79 18 103/61 96 10/17/18 11:42 10/17/18 11:42 10/17/18 11:42 10/17/18 11:42 10/17/18 11:42 General appearance: Present: no acute distress, well-nourished - EENT Eyes: Present: PERRL, EOM intact ENT: other (swelling Rt mandibular and sub gaurav area) - Neck Neck: Present: supple - Respiratory Respiratory effort: normal Respiratory: bilateral: diminished, negative: rales, rhonchi, wheezing - Cardiovascular Rhythm: regular Heart Sounds: Present: S1 & S2 - Extremities Extremities: no ischemia, No edema - Abdominal General gastrointestinal: soft, non-tender, non-distended - Integumentary Integumentary: Present: clear, warm - Psychiatric Psychiatric: appropriate mood/affect, cooperative - Neurologic Neurologic: moves all extremities Results - Labs CBC & Chem 7: 10/18/18 06:31 10/18/18 06:31 Labs: Laboratory Last Values WBC 18.0 K/mm3 (4.5-11.0) H 10/16/18 20:12 RBC 4.15 M/mm3 (3.65-5.03) 10/16/18 20:12 Hgb 12.7 gm/dl (10.1-14.3) 10/16/18 20:12 Hct 37.5 % (30.3-42.9) 10/16/18 20:12 MCV 91 fl (79-97) 10/16/18 20:12 MCH 31 pg (28-32) 10/16/18 20:12 MCHC 34 % (30-34) 10/16/18 20:12 RDW 13.6 % (13.2-15.2) 10/16/18 20:12 Plt Count 305 K/mm3 (140-440) 10/16/18 20:12 Lymph % (Auto) 4.2 % (13.4-35.0) L 10/16/18 20:12 [place] % (Auto) 5.3 % (0.0-7.3) 10/16/18 20:12 Eos % (Auto) 0.0 % (0.0-4.3) 10/16/18 20:12 Baso % (Auto) 1.0 % (0.0-1.8) 10/16/18 20:12 Lymph # 0.8 K/mm3 (1.2-5.4) L 10/16/18 20:12 [place] # 0.9 K/mm3 (0.0-0.8) H 10/16/18 20:12 Eos # 0.0 K/mm3 (0.0-0.4) 10/16/18 20:12 Baso # 0.2 K/mm3 (0.0-0.1) H 10/16/18 20:12 Seg Neutrophils % 89.5 % (40.0-70.0) H 10/16/18 20:12 Seg Neutrophils # 16.2 K/mm3 (1.8-7.7) H 10/16/18 20:12 PT 13.9 Sec. (12.2-14.9) 10/16/18 20:12 INR 1.01 (0.87-1.13) 10/16/18 20:12 VBG pH 7.435 (7.320-7.420) H 10/16/18 20:12 Sodium 138 mmol/L (137-145) 10/16/18 20:12 Potassium 4.0 mmol/L (3.6-5.0) 10/16/18 20:12 Chloride 102.5 mmol/L (98-107) 10/16/18 20:12 Carbon Dioxide 22 mmol/L (22-30) 10/16/18 20:12 Anion Gap 18 mmol/L 10/16/18 20:12 BUN 8 mg/dL (7-17) 10/16/18 20:12 Creatinine 0.7 mg/dL (0.7-1.2) 10/16/18 20:12 Estimated GFR > 60 ml/min 10/16/18 20:12 BUN/Creatinine Ratio 11 % 10/16/18 20:12 Glucose 113 mg/dL (65-100) H 10/16/18 20:12 Lactic Acid 1.00 mmol/L (0.7-2.0) 10/17/18 00:50 Calcium 9.0 mg/dL (8.4-10.2) 10/16/18 20:12 Total Bilirubin 0.90 mg/dL (0.1-1.2) 10/16/18 20:12 AST 13 units/L (5-40) 10/16/18 20:12 ALT 19 units/L (7-56) 10/16/18 20:12 Alkaline Phosphatase 99 units/L (35-129) 10/16/18 20:12 Total Protein 6.9 g/dL (6.3-8.2) 10/16/18 20:12 Albumin 4.1 g/dL (3.9-5) 10/16/18 20:12 Albumin/Globulin Ratio 1.5 % 10/16/18 20:12 HCG, Qual Negative (Negative) 10/16/18 20:12 Urine Color Yellow (Yellow) 10/16/18 22:32 Urine Turbidity Slightly-cloudy (Clear) 10/16/18 22:32 Urine pH 5.0 (5.0-7.0) 10/16/18 22:32 Ur Specific [place] 1.008 (1.003-1.030) 10/16/18 22:32 Urine Protein <15 mg/dl mg/dL (Negative) 10/16/18 22:32 Urine Glucose (UA) Neg mg/dL (Negative) 10/16/18 22:32 Urine Ketones Neg mg/dL (Negative) 10/16/18 22:32 Urine Blood Neg (Negative) 10/16/18 22:32 Urine Nitrite Neg (Negative) 10/16/18 22:32 Urine Bilirubin Neg (Negative) 10/16/18 22:32 Urine Urobilinogen < 2.0 mg/dL (<2.0) 10/16/18 22:32 Ur Leukocyte Esterase Tr (Negative) 10/16/18 22:32 Urine WBC (Auto) 5.0 /HPF (0.0-6.0) 10/16/18 22:32 Urine RBC (Auto) 6.0 /HPF (0.0-6.0) 10/16/18 22:32 U Epithel Cells (Auto) 11.0 /HPF (0-13.0) 10/16/18 22:32 Urine Bacteria (Auto) 1+ /HPF (Negative) 10/16/18 22:32 Urine Mucus Few /HPF 10/16/18 22:32
[2018-10-17] MEDS ORDERED: CHLORASEPTIC MM PRN (18:08)
[2018-10-17] MEDS: TYLENOL PO PRN (23:53)
[2018-10-18] MEDS: MORPHINE IV PRN ×3 (05:13→21:16)
[2018-10-18] MEDS: NACL 0.9% 1000 ML 1,000 ML IV SCH ×3 (05:14→21:27)
[2018-10-18] MEDS ORDERED: PNEUMOVAX 23 IM ONE (06:12)
[2018-10-18 07:13] LABS: Basophils % (Auto) 0.2 % (0.0-1.8); Eosinophils % (Auto) 0.1 % (0.0-4.3); Hematocrit 32.2 % (30.3-42.9); Hemoglobin 10.9 gm/dl (10.1-14.3); Lymphocytes % (Auto) 17.8 % (13.4-35.0); Mean Corpuscular HGB Conc 34 % (30-34); Mean Corpuscular Volume 90 fl (79-97); Monocytes # (Auto) 0.8 K/mm3 (0.0-0.8); Monocytes % (Auto) 4.7 % (0.0-7.3); Platelet Count 283 K/mm3 (140-440); Red Blood Count 3.58 M/mm3 (3.65-5.03); Red Cell Distribution Width 13.6 % (13.2-15.2)
[2018-10-18 07:31] LABS: BUN/Creatinine Ratio 10; Blood Urea Nitrogen 7 mg/dL (7-17); Calcium 7.9 mg/dL (8.4-10.2); Hemolysis Index 2
[2018-10-18] MEDS ORDERED: DECADRON IV ONE (08:50)
[2018-10-18] MEDS ORDERED: DECADRON IV STA ×2 (08:51→09:13)
--- NOTE | 2018-10-18 09:02 | Progress Note ---
Assessment and Plan Assessment and plan: --Right submandibular gland infection/cellulitis ?Guillermo's angina, Continue Rocephin and clindamycin, pain medications and supportive care Patient has no difficulty breathing, no stridor, no dysphagia Tolerating full liquid diet, supportive care I discussed with ENT Dr. Ayaz Francois and requested consult Advised 10 mg of Decadron IV stat, and 8 mg every 8 hours 3 doses, will see the patient If Patient symptoms become worse ,will transfer the patient to ICU for close observation --Febrile illness/sepsis; secondary to infectious process Continue antibiotics, follow cultures, ID evaluation if needed --h/o tooth infection; continue antibiotics, patient needs to follow with dentist upon discharge, dental services not available, Chloroceptic throat spray as needed --Urinary Tract infection; continue current antibiotics follow cultures --Morbid obesity; BMI 45.2, patient advised weight reduction and medically stable --DVT prophylaxis; Lovenox Closely monitor the patient and adjust the management as needed plan of care is reviewed with the patient and her nurse History Interval history: Patient seen and examined medical records reviewed The patient has worsening swelling of submandibular and mandibular area Patient is febrile, no shortness of breath, no stridor or respiratory distress vital Signs reviewed Hospitalist Physical - Constitutional Vitals: Temp Pulse Resp BP Pulse Ox 99.8 F H 112 H 20 122/64 96 10/18/18 05:55 10/18/18 05:55 10/18/18 05:55 10/18/18 05:55 10/18/18 05:55 General appearance: Present: mild distress, well-nourished - EENT Eyes: Present: PERRL, EOM intact ENT: other (swelling ,mandibular and submandibular area) - Neck Neck: Present: other (Rt sided swelling) - Respiratory Respiratory effort: normal Respiratory: bilateral: diminished, negative: rales, rhonchi, wheezing - Cardiovascular Rhythm: regular Heart Sounds: Present: S1 & S2 - Extremities Extremities: no ischemia, No edema - Abdominal General gastrointestinal: soft, non-tender, non-distended, normal bowel sounds - Integumentary Integumentary: Present: clear, warm - Psychiatric Psychiatric: appropriate mood/affect, cooperative - Neurologic Neurologic: CNII-XII intact, moves all extremities Results - Labs CBC & Chem 7: 10/18/18 06:31 10/18/18 06:31 Labs: Laboratory Last Values WBC 17.0 K/mm3 (4.5-11.0) H 10/18/18 06:31 RBC 3.58 M/mm3 (3.65-5.03) L 10/18/18 06:31 Hgb 10.9 gm/dl (10.1-14.3) 10/18/18 06:31 Hct 32.2 % (30.3-42.9) 10/18/18 06:31 MCV 90 fl (79-97) 10/18/18 06:31 MCH 31 pg (28-32) 10/18/18 06:31 MCHC 34 % (30-34) 10/18/18 06:31 RDW 13.6 % (13.2-15.2) 10/18/18 06:31 Plt Count 283 K/mm3 (140-440) 10/18/18 06:31 Lymph % (Auto) 17.8 % (13.4-35.0) 10/18/18 06:31 [place] % (Auto) 4.7 % (0.0-7.3) 10/18/18 06:31 Eos % (Auto) 0.1 % (0.0-4.3) 10/18/18 06:31 Baso % (Auto) 0.2 % (0.0-1.8) 10/18/18 06:31 Lymph # 3.0 K/mm3 (1.2-5.4) 10/18/18 06:31 [place] # 0.8 K/mm3 (0.0-0.8) 10/18/18 06:31 Eos # 0.0 K/mm3 (0.0-0.4) 10/18/18 06:31 Baso # 0.0 K/mm3 (0.0-0.1) 10/18/18 06:31 Seg Neutrophils % 77.2 % (40.0-70.0) H 10/18/18 06:31 Seg Neutrophils # 13.1 K/mm3 (1.8-7.7) H 10/18/18 06:31 PT 13.9 Sec. (12.2-14.9) 10/16/18 20:12 INR 1.01 (0.87-1.13) 10/16/18 20:12 VBG pH 7.435 (7.320-7.420) H 10/16/18 20:12 Sodium 141 mmol/L (137-145) 10/18/18 06:31 Potassium 3.1 mmol/L (3.6-5.0) L D 10/18/18 06:31 Chloride 106.6 mmol/L (98-107) 10/18/18 06:31 Carbon Dioxide 22 mmol/L (22-30) 10/18/18 06:31 Anion Gap 16 mmol/L 10/18/18 06:31 BUN 7 mg/dL (7-17) 10/18/18 06:31 Creatinine 0.7 mg/dL (0.7-1.2) 10/18/18 06:31 Estimated GFR > 60 ml/min 10/18/18 06:31 BUN/Creatinine Ratio 10 % 10/18/18 06:31 Glucose 101 mg/dL (65-100) H 10/18/18 06:31 Lactic Acid 1.00 mmol/L (0.7-2.0) 10/17/18 00:50 Calcium 7.9 mg/dL (8.4-10.2) L 10/18/18 06:31 Total Bilirubin 0.90 mg/dL (0.1-1.2) 10/16/18 20:12 AST 13 units/L (5-40) 10/16/18 20:12 ALT 19 units/L (7-56) 10/16/18 20:12 Alkaline Phosphatase 99 units/L (35-129) 10/16/18 20:12 Total Protein 6.9 g/dL (6.3-8.2) 10/16/18 20:12 Albumin 4.1 g/dL (3.9-5) 10/16/18 20:12 Albumin/Globulin Ratio 1.5 % 10/16/18 20:12 HCG, Qual Negative (Negative) 10/16/18 20:12 Urine Color Yellow (Yellow) 10/16/18 22:32 Urine Turbidity Slightly-cloudy (Clear) 10/16/18 22:32 Urine pH 5.0 (5.0-7.0) 10/16/18 22:32 Ur Specific [place] 1.008 (1.003-1.030) 10/16/18 22:32 Urine Protein <15 mg/dl mg/dL (Negative) 10/16/18 22:32 Urine Glucose (UA) Neg mg/dL (Negative) 10/16/18 22:32 Urine Ketones Neg mg/dL (Negative) 10/16/18 22:32 Urine Blood Neg (Negative) 10/16/18 22:32 Urine Nitrite Neg (Negative) 10/16/18 22:32 Urine Bilirubin Neg (Negative) 10/16/18 22:32 Urine Urobilinogen < 2.0 mg/dL (<2.0) 10/16/18 22:32 Ur Leukocyte Esterase Tr (Negative) 10/16/18 22:32 Urine WBC (Auto) 5.0 /HPF (0.0-6.0) 10/16/18 22:32 Urine RBC (Auto) 6.0 /HPF (0.0-6.0) 10/16/18 22:32 U Epithel Cells (Auto) 11.0 /HPF (0-13.0) 10/16/18 22:32 Urine Bacteria (Auto) 1+ /HPF (Negative) 10/16/18 22:32 Urine Mucus Few /HPF 10/16/18 22:32
[2018-10-18] MEDS ORDERED: K-DUR PO ONE (10:00)
[2018-10-18] MEDS: KEPPRA PO SCH ×2 (10:16→21:16)
[2018-10-18] MEDS: PEPCID PO SCH ×2 (10:17→21:17)
[2018-10-18] MEDS: HEPARIN SUB-Q SCH ×2 (10:17→21:16)
[2018-10-18] MEDS: TYLENOL PO PRN (10:33)
[2018-10-18] MEDS: CLEOCIN 900 MG/50 mL 900 MG/50 ML BAG IV SCH ×2 (11:41→17:16)
[2018-10-18] MEDS: ROCEPHIN/NS 1 GM/50 ML 1 GM/50 ML BAG IV SCH (12:44)
--- NOTE | 2018-10-18 14:21 | XRay Report ---
FINAL REPORT EXAM: XR CHEST 1V AP HISTORY: possible Sepsis TECHNIQUE: AP portable view of the chest PRIORS: None. FINDINGS: Lines, tubes, and devices: N/A Lungs and pleura: Trachea is normal in position. Lungs are clear of infiltrate, pleural effusion, vas cular congestion, or pneumothorax. Cardiomediastinal silhouette: Cardiac and mediastinal silhouettes are unremarkable. Other: Bony structures are intact. IMPRESSION: No acute cardiopulmonary process seen.
[2018-10-18] MEDS: DECADRON IV SCH ×2 (15:05→21:15)
[2018-10-18] MEDS: ZOFRAN IV PRN (21:15)
[2018-10-19] MEDS: CLEOCIN 900 MG/50 mL 900 MG/50 ML BAG IV SCH ×3 (02:44→18:19)
[2018-10-19] MEDS: DECADRON IV SCH ×3 (05:55→21:44)
[2018-10-19 08:25] LABS: Basophils % (Auto) 0.3 % (0.0-1.8); Lymphocytes # (Auto) 1.1 K/mm3 (1.2-5.4); Lymphocytes % (Auto) 8.6 % (13.4-35.0); Mean Corpuscular HGB Conc 33 % (30-34); Mean Corpuscular Volume 91 fl (79-97); Monocytes # (Auto) 0.6 K/mm3 (0.0-0.8); Monocytes % (Auto) 4.4 % (0.0-7.3); Platelet Count 296 K/mm3 (140-440); Red Blood Count 3.63 M/mm3 (3.65-5.03); Red Cell Distribution Width 13.6 % (13.2-15.2)
[2018-10-19 08:39] LABS: BUN/Creatinine Ratio 18; Blood Urea Nitrogen 7 mg/dL (7-17); Calcium 8.6 mg/dL (8.4-10.2); Hemolysis Index 6
[2018-10-19] MEDS: NACL 0.9% 1000 ML 1,000 ML IV SCH ×2 (10:07→21:58)
[2018-10-19] MEDS: ROCEPHIN/NS 1 GM/50 ML 1 GM/50 ML BAG IV SCH (10:07)
[2018-10-19] MEDS: HEPARIN SUB-Q SCH ×2 (10:08→21:44)
[2018-10-19] MEDS: K-DUR PO SCH (10:08)
[2018-10-19] MEDS: KEPPRA PO SCH ×2 (10:09→21:43)
[2018-10-19] MEDS: PEPCID PO SCH ×2 (10:09→21:44)
[2018-10-19] MEDS: MORPHINE IV PRN ×2 (10:10→18:18)
--- NOTE | 2018-10-19 15:55 | Consultation ---
History of Present Illness - Reason for Consult Consult date: 10/19/18 rt submandubular sialoadenitis - History of Present Illness Ms. Castro presented to the ED on the with a c/o Rt. jaw swelling that started 2 days prior to presentation. The swelling was assoc. with fever, chills, nausea & vomiting. She represented to the ED later in the day with worsening symptoms and progressive swelling of her rt. face. She was subsequently admitted and started on IV antibx w/o significant response. Her antibx were changed and decadron was added to her treatment with some improvement of symptoms. Past History Past Medical History: other (Crohns dz, seizure disorder, asthma, dental disease, anxiety) Past Surgical History: No surgical history, cholecystectomy (corneal transplant), Other (corneal transplant) Social history: no significant social history, lives with family, full code Family history: no significant family history Medications and Allergies Allergies Allergy/AdvReac Type Severity Reaction Status Date / Time promethazine HCl Allergy Unknown Verified 08/16/14 23:19 [From Phenergan] lorazepam [From Ativan] AdvReac Seizure Verified 04/21/16 15:07 mushroom AdvReac Unknown Verified 02/21/16 21:26 ct dye Allergy Swelling Uncoded 05/12/14 21:45 corn beef AdvReac Unknown Uncoded 02/21/16 21:26 Home Medications Medication Instructions Recorded Confirmed Last Taken Type Norethindrone AC-Eth Estradiol 1 each PO DAILY 02/21/16 10/18/18 10/14/18 History [Junel 1.5 mg-30 Mcg Tablet] levETIRAcetam [Keppra TAB] 1,000 mg PO BID 30 Days tablet 04/24/16 10/18/18 10/14/18 Rx Famotidine [Pepcid] 20 mg PO BID #20 tablet 07/10/16 10/18/18 10/14/18 Rx HYDROcodone/APAP 5-325 [[place] 1 each PO Q6HR PRN #10 tablet 07/10/16 10/18/18 10/14/18 Rx 5/325] Metoclopramide HCl [Reglan TAB] 5 mg PO BID PRN #20 tablet 07/10/16 10/18/18 10/14/18 Rx Ondansetron [Zofran Odt] 4 mg PO Q8H PRN #10 tab.rapdis 07/10/16 10/18/18 10/14/18 Rx Amoxicillin 500 mg PO BID #14 capsule 10/16/18 10/18/18 10/14/18 Rx Diphenoxylate/Atropine [Lomotil] 2 tab PO QID PRN #20 tablet 10/16/18 10/18/18 10/14/18 Rx HYDROcodone/APAP 5-325 [[place] 1 - 2 each PO Q6HR PRN #14 tablet 10/16/18 10/18/18 10/14/18 Rx 5/325] Ondansetron [Zofran ODT TAB] 8 mg PO Q8HR #20 tab.rapdis 10/16/18 10/18/18 10/14/18 Rx Active Meds: Active Medications Acetaminophen (Tylenol) 650 mg PO Q4H PRN PRN Reason: Fever >101 Last Admin: 10/18/18 10:33 Dose: 650 mg Documented by: Dexamethasone (Decadron) 8 mg IV Q8HR [facility] Last Admin: 10/19/18 15:17 Dose: 8 mg Documented by: Famotidine (Pepcid) 20 mg PO BID [facility] Last Admin: 10/19/18 10:09 Dose: 20 mg Documented by: Heparin Sodium (Porcine) (Heparin) 5,000 unit SUB-Q Q12HR [facility] Last Admin: 10/19/18 10:08 Dose: 5,000 unit Documented by: Ceftriaxone Sodium (Rocephin/Ns 1 Gm/50 Ml) 1 gm in 50 mls @ 100 mls/hr IV Q24HR [facility]; Protocol Last Admin: 10/19/18 10:07 Dose: 100 mls/hr Documented by: Sodium Chloride (Nacl 0.9% 1000 Ml) 1,000 mls @ 75 mls/hr IV DIRECT [facility] Last Admin: 10/19/18 10:07 Dose: 150 mls/hr Documented by: Clindamycin HCl (Cleocin 900 Mg/50 Ml) 900 mg in 50 mls @ 100 mls/hr IV Q8H [facility] Last Admin: 10/19/18 11:41 Dose: 100 mls/hr Documented by: Levetiracetam (Keppra) 1,000 mg PO BID [facility] Last Admin: 10/19/18 10:09 Dose: 1,000 mg Documented by: Morphine Sulfate (Morphine) 2 mg IV Q6H PRN PRN Reason: Pain, Moderate (4-6) Last Admin: 10/19/18 10:10 Dose: 2 mg Documented by: Ondansetron HCl (Zofran) 4 mg IV Q8H PRN PRN Reason: Nausea And Vomiting Last Admin: 10/18/18 21:15 Dose: 4 mg Documented by: Phenol (Chloraseptic) 1 spray MM PRN PRN PRN Reason: Sore Throat Last Admin: 10/18/18 10:33 Dose: 1 spray Documented by: Potassium Chloride (K-Dur) 20 meq PO QDAY EDIN Last Admin: 10/19/18 10:08 Dose: 20 meq Documented by: Review of Systems Constitutional: fever, chills, poor appetite Ears, nose, mouth and throat: dental pain, mouth pain, sore throat, odynophagia, headache, neck fullness/pressure Breasts: normal Gastrointestinal: nausea, vomiting Musculoskeletal: neck pain Integumentary: redness Psychiatric: anxiety Hematologic/Lymphatic: lymphadenopathy Exam - Constitutional Vitals: Temp Pulse Resp BP Pulse Ox 98.4 F 51 L 20 105/49 93 10/19/18 11:24 10/19/18 11:24 10/19/18 11:24 10/19/18 11:24 10/19/18 11:24 General appearance: Present: mild distress - EENT Eyes: Present: PERRL, EOM intact ENT: hearing intact, clear oral mucosa, other (dental caries) - Neck Neck: Present: cervical LAD, other (rt. submandibular gland and surronding skin tender to palaption, inflamed, with calor, no fluctuanced, indurated) - Respiratory Respiratory: bilateral: CTA - Cardiovascular Rhythm: regular Heart Sounds: Present: S1 & S2 - Extremities Extremities: no ischemia, pulses intact, pulses symmetrical, No edema Peripheral Pulses: within normal limits - Abdominal General gastrointestinal: Present: soft, non-tender, non-distended Female genitourinary: Present: deferred - Rectal Rectal Exam: deferred - Integumentary Integumentary: Present: warm, dry - Musculoskeletal Musculoskeletal: strength equal bilaterally - Psychiatric Psychiatric: appropriate mood/affect - Neurologic Neurologic: CNII-XII intact Results - Labs CBC & Chem 7: 10/19/18 07:08 02/19/19 07:08 Labs: Abnormal lab results 10/19/18 10/19/18 Range/Units 07:08 07:08 WBC 13.1 H (4.5-11.0) K/mm3 RBC 3.63 L (3.65-5.03) M/mm3 Lymph % (Auto) 8.6 L (13.4-35.0) % Lymph # 1.1 L (1.2-5.4) K/mm3 Seg Neutrophils % 86.7 H (40.0-70.0) % Seg Neutrophils # 11.4 H (1.8-7.7) K/mm3 Creatinine 0.4 L (0.7-1.2) mg/dL Glucose 138 H (65-100) mg/dL Assessment and Plan - Patient Problems (1) Obese Current Visit: Yes Status: Acute Plan to address problem: monitor caloric intake (2) Febrile Current Visit: Yes Status: Acute Plan to address problem: antipyretics (3) Crohn disease Current Visit: Yes Status: Acute (4) Fever Current Visit: Yes Status: Acute Qualifiers: Fever type: unspecified Qualified Code(s): R50.9 - Fever, unspecified Plan to address problem: per primary service (5) Sepsis Current Visit: Yes Status: Acute Qualifiers: Sepsis type: sepsis due to unspecified organism Qualified Code(s): A41.9 - Sepsis, unspecified organism Plan to address problem: cont. antibx (6) Submandibular gland infection Current Visit: Yes Status: Acute Plan to address problem: cont. antibx (7) Submandibular gland inflammation Current Visit: Yes Status: Acute Plan to address problem: cont. steroids (8) Crohns disease Current Visit: No Status: Acute Plan to address problem: per primary service
--- NOTE | 2018-10-19 18:49 | Cat Scan Report ---
FINAL REPORT PROCEDURE: CT NECK WO CON TECHNIQUE: Computerized tomography of the soft tissue neck was performed without contrast material. This study is performed without intravascular contrast material and its sensitivity for pathology, in cluding neoplasms, inflammation, abscess, free fluid, thrombosis, and arterial dissection, is reduced compared with a contrast enhanced study. HISTORY: neck cellulitis COMPARISON: No prior studies are available for comparison. FINDINGS: Skull base: Visualized portions are normal. Paranasal sinuses: Visualized portions are normal. Nasopharynx: Normal. Oral cavity: Normal. Epiglottis/vallecula: Normal. Larynx/pyriform sinuses: Normal. Thyroid gland: Thyroid gland is lobular Lymph nodes: Mildly enlarged submandibular lymph nodes are present Salivary glands: Normal. Upper thorax: Normal. There is dental and periodontal disease. There is mild stranding adjacent to the right mandible. IMPRESSION: There is dental and periodontal disease. There is mild stranding adjacent to the right mandible which could be related to cellulitis. If there are persistent or worsening symptoms, further evaluation wi th CT with IV contrast could be obtained to evaluate for abscess
--- NOTE | 2018-10-19 19:10 | Progress Note ---
Assessment and Plan Assessment and plan: --Right submandibular gland infection/cellulitis; significant improvement ENT evaluation and recommendations noted and appreciated Continue Rocephin and clindamycin, pain medications and supportive care Patient has no difficulty breathing, no stridor, no dysphagia Advance diet --Leukocytosis; secondary to steroids and underlying inflammatory process --Febrile illness/sepsis; secondary to infectious process Continue antibiotics, follow cultures, ID evaluation if needed --h/o tooth infection; continue antibiotics, patient needs to follow with dentist upon discharge, dental services not available, Chloroceptic throat spray as needed --Urinary Tract infection; continue current antibiotics follow cultures --Morbid obesity; BMI 45.2, patient advised weight reduction and medically stable --DVT prophylaxis; Lovenox Closely monitor the patient and adjust the management as needed plan of care is reviewed with the patient and her nurse History Interval history: Patient seen and examined medical records reviewed Patient feels much better, jaw and submandibular swelling significantly improved On IV antibiotics and IV steroids ENT evaluated the patient today, repeat CT neck reviewed Vital signs noted Patient not in distress Hospitalist Physical - Constitutional Vitals: Temp Pulse Resp BP Pulse Ox 98.4 F 50 L 18 118/63 94 10/19/18 16:35 10/19/18 16:35 10/19/18 16:35 10/19/18 16:35 10/19/18 16:35 General appearance: Present: no acute distress, well-nourished, obese (morbidly obese) - EENT Eyes: Present: PERRL, EOM intact - Neck Neck: Present: supple, normal ROM - Respiratory Respiratory effort: normal Respiratory: bilateral: diminished, negative: rales, rhonchi, wheezing - Cardiovascular Rhythm: regular Heart Sounds: Present: S1 & S2 - Extremities Extremities: no ischemia, No edema - Abdominal General gastrointestinal: soft, non-tender, non-distended, normal bowel sounds - Integumentary Integumentary: Present: clear, warm - Psychiatric Psychiatric: appropriate mood/affect, cooperative - Neurologic Neurologic: CNII-XII intact, moves all extremities Results - Labs CBC & Chem 7: 10/19/18 07:08 10/19/18 07:08 Labs: Laboratory Last Values WBC 13.1 K/mm3 (4.5-11.0) H 10/19/18 07:08 RBC 3.63 M/mm3 (3.65-5.03) L 10/19/18 07:08 Hgb 11.0 gm/dl (10.1-14.3) 10/19/18 07:08 Hct 33.0 % (30.3-42.9) 10/19/18 07:08 MCV 91 fl (79-97) 10/19/18 07:08 MCH 30 pg (28-32) 10/19/18 07:08 MCHC 33 % (30-34) 10/19/18 07:08 RDW 13.6 % (13.2-15.2) 10/19/18 07:08 Plt Count 296 K/mm3 (140-440) 10/19/18 07:08 Lymph % (Auto) 8.6 % (13.4-35.0) L 10/19/18 07:08 [place] % (Auto) 4.4 % (0.0-7.3) 10/19/18 07:08 Eos % (Auto) 0.0 % (0.0-4.3) 10/19/18 07:08 Baso % (Auto) 0.3 % (0.0-1.8) 10/19/18 07:08 Lymph # 1.1 K/mm3 (1.2-5.4) L 10/19/18 07:08 [place] # 0.6 K/mm3 (0.0-0.8) 10/19/18 07:08 Eos # 0.0 K/mm3 (0.0-0.4) 10/19/18 07:08 Baso # 0.0 K/mm3 (0.0-0.1) 10/19/18 07:08 Seg Neutrophils % 86.7 % (40.0-70.0) H 10/19/18 07:08 Seg Neutrophils # 11.4 K/mm3 (1.8-7.7) H 10/19/18 07:08 PT 13.9 Sec. (12.2-14.9) 10/16/18 20:12 INR 1.01 (0.87-1.13) 10/16/18 20:12 VBG pH 7.435 (7.320-7.420) H 10/16/18 20:12 Sodium 140 mmol/L (137-145) 10/19/18 07:08 Potassium 4.5 mmol/L (3.6-5.0) D 10/19/18 07:08 Chloride 102.9 mmol/L (98-107) 10/19/18 07:08 Carbon Dioxide 22 mmol/L (22-30) 10/19/18 07:08 Anion Gap 20 mmol/L 10/19/18 07:08 BUN 7 mg/dL (7-17) 10/19/18 07:08 Creatinine 0.4 mg/dL (0.7-1.2) L 10/19/18 07:08 Estimated GFR > 60 ml/min 10/19/18 07:08 BUN/Creatinine Ratio 18 % 10/19/18 07:08 Glucose 138 mg/dL (65-100) H 10/19/18 07:08 Lactic Acid 1.00 mmol/L (0.7-2.0) 10/17/18 00:50 Calcium 8.6 mg/dL (8.4-10.2) 10/19/18 07:08 Total Bilirubin 0.90 mg/dL (0.1-1.2) 10/16/18 20:12 AST 13 units/L (5-40) 10/16/18 20:12 ALT 19 units/L (7-56) 10/16/18 20:12 Alkaline Phosphatase 99 units/L (35-129) 10/16/18 20:12 Total Protein 6.9 g/dL (6.3-8.2) 10/16/18 20:12 Albumin 4.1 g/dL (3.9-5) 10/16/18 20:12 Albumin/Globulin Ratio 1.5 % 10/16/18 20:12 HCG, Qual Negative (Negative) 10/16/18 20:12 Urine Color Yellow (Yellow) 10/16/18 22:32 Urine Turbidity Slightly-cloudy (Clear) 10/16/18 22:32 Urine pH 5.0 (5.0-7.0) 10/16/18 22:32 Ur Specific [place] 1.008 (1.003-1.030) 10/16/18 22:32 Urine Protein <15 mg/dl mg/dL (Negative) 10/16/18 22:32 Urine Glucose (UA) Neg mg/dL (Negative) 10/16/18 22:32 Urine Ketones Neg mg/dL (Negative) 10/16/18 22:32 Urine Blood Neg (Negative) 10/16/18 22:32 Urine Nitrite Neg (Negative) 10/16/18 22:32 Urine Bilirubin Neg (Negative) 10/16/18 22:32 Urine Urobilinogen < 2.0 mg/dL (<2.0) 10/16/18 22:32 Ur Leukocyte Esterase Tr (Negative) 10/16/18 22:32 Urine WBC (Auto) 5.0 /HPF (0.0-6.0) 10/16/18 22:32 Urine RBC (Auto) 6.0 /HPF (0.0-6.0) 10/16/18 22:32 U Epithel Cells (Auto) 11.0 /HPF (0-13.0) 10/16/18 22:32 Urine Bacteria (Auto) 1+ /HPF (Negative) 10/16/18 22:32 Urine Mucus Few /HPF 10/16/18 22:32
[2018-10-20] MEDS: CLEOCIN 900 MG/50 mL 900 MG/50 ML BAG IV SCH ×3 (02:33→17:34)
[2018-10-20] MEDS: DECADRON IV SCH ×2 (06:08→14:16)
[2018-10-20] MEDS: IBUPROFEN PO PRN ×2 (06:17→08:37)
[2018-10-20] MEDS: ROCEPHIN/NS 1 GM/50 ML 1 GM/50 ML BAG IV SCH (09:34)
[2018-10-20] MEDS: PEPCID PO SCH ×2 (09:34→21:22)
[2018-10-20] MEDS: KEPPRA PO SCH ×2 (09:35→21:21)
[2018-10-20] MEDS: K-DUR PO SCH (09:35)
[2018-10-20] MEDS: HEPARIN SUB-Q SCH ×2 (09:39→21:22)
[2018-10-20] MEDS: NACL 0.9% 1000 ML 1,000 ML IV SCH (12:55)
[2018-10-20] MEDS: MORPHINE IV PRN (17:38)
--- NOTE | 2018-10-20 19:18 | Progress Note ---
Assessment and Plan Assessment and plan: --Febrile illness/sepsis; secondary to infectious process Continue antibiotics, follow cultures NGTD, afebrile --Right submandibular gland infection/cellulitis; significant improvement ENT evaluation and recommendations noted and appreciated Continue Rocephin and clindamycin, pain medications and supportive care Patient has no difficulty breathing, no stridor, no dysphagia Advance diet as tolerated --Leukocytosis; secondary to steroids and underlying inflammatory process --h/o tooth infection; continue antibiotics, patient needs to follow with dentist upon discharge, dental services not available, Chloroceptic throat spray as needed --Urinary Tract infection; continue current antibiotics follow cultures --Morbid obesity; BMI 45.2, patient advised weight reduction and medically sta ble --DVT prophylaxis; Lovenox Closely monitor the patient and adjust the management as needed plan of care is reviewed with the patient and her nurse Possible discharge home tomorrow on oral antibiotics Advised to follow with dentist and ENT upon discharge History Interval history: Patient seen and examined medical records reviewed No new events reported by the nursing Submandibular and mandibular swelling significantly improved Afebril ,Vitals noted Hospitalist Physical - Constitutional Vitals: Temp Pulse Resp BP Pulse Ox 97.1 F L 48 L 20 138/78 92 10/20/18 11:30 10/20/18 11:30 10/20/18 11:30 10/20/18 11:30 10/20/18 11:30 General appearance: Present: no acute distress, well-nourished, obese (morbidly obese) - EENT Eyes: Present: PERRL, EOM intact ENT: other (submandibular mandible swelling significantly improved) - Neck Neck: Present: supple, normal ROM - Respiratory Respiratory effort: normal Respiratory: bilateral: diminished, negative: rales, rhonchi, wheezing - Cardiovascular Rhythm: regular Heart Sounds: Present: S1 & S2 - Extremities Extremities: no ischemia, No edema - Abdominal General gastrointestinal: soft, non-tender, non-distended, normal bowel sounds - Integumentary Integumentary: Present: clear, warm - Psychiatric Psychiatric: appropriate mood/affect, cooperative - Neurologic Neurologic: CNII-XII intact, moves all extremities Results - Labs CBC & Chem 7: 10/19/18 07:08 10/19/18 07:08 Labs: Laboratory Last Values WBC 13.1 K/mm3 (4.5-11.0) H 10/19/18 07:08 RBC 3.63 M/mm3 (3.65-5.03) L 10/19/18 07:08 Hgb 11.0 gm/dl (10.1-14.3) 10/19/18 07:08 Hct 33.0 % (30.3-42.9) 10/19/18 07:08 MCV 91 fl (79-97) 10/19/18 07:08 MCH 30 pg (28-32) 10/19/18 07:08 MCHC 33 % (30-34) 10/19/18 07:08 RDW 13.6 % (13.2-15.2) 10/19/18 07:08 Plt Count 296 K/mm3 (140-440) 10/19/18 07:08 Lymph % (Auto) 8.6 % (13.4-35.0) L 10/19/18 07:08 Hand % (Auto) 4.4 % (0.0-7.3) 10/19/18 07:08 Eos % (Auto) 0.0 % (0.0-4.3) 10/19/18 07:08 Baso % (Auto) 0.3 % (0.0-1.8) 10/19/18 07:08 Lymph # 1.1 K/mm3 (1.2-5.4) L 10/19/18 07:08 Hand # 0.6 K/mm3 (0.0-0.8) 10/19/18 07:08 Eos # 0.0 K/mm3 (0.0-0.4) 10/19/18 07:08 Baso # 0.0 K/mm3 (0.0-0.1) 10/19/18 07:08 Seg Neutrophils % 86.7 % (40.0-70.0) H 10/19/18 07:08 Seg Neutrophils # 11.4 K/mm3 (1.8-7.7) H 10/19/18 07:08 PT 13.9 Sec. (12.2-14.9) 10/16/18 20:12 INR 1.01 (0.87-1.13) 10/16/18 20:12 VBG pH 7.435 (7.320-7.420) H 10/16/18 20:12 Sodium 140 mmol/L (137-145) 10/19/18 07:08 Potassium 4.5 mmol/L (3.6-5.0) D 10/19/18 07:08 Chloride 102.9 mmol/L (98-107) 10/19/18 07:08 Carbon Dioxide 22 mmol/L (22-30) 10/19/18 07:08 Anion Gap 20 mmol/L 10/19/18 07:08 BUN 7 mg/dL (7-17) 10/19/18 07:08 Creatinine 0.4 mg/dL (0.7-1.2) L 10/19/18 07:08 Estimated GFR > 60 ml/min 10/19/18 07:08 BUN/Creatinine Ratio 18 % 10/19/18 07:08 Glucose 138 mg/dL (65-100) H 10/19/18 07:08 Lactic Acid 1.00 mmol/L (0.7-2.0) 10/17/18 00:50 Calcium 8.6 mg/dL (8.4-10.2) 10/19/18 07:08 Total Bilirubin 0.90 mg/dL (0.1-1.2) 10/16/18 20:12 AST 13 units/L (5-40) 10/16/18 20:12 ALT 19 units/L (7-56) 10/16/18 20:12 Alkaline Phosphatase 99 units/L (35-129) 10/16/18 20:12 Total Protein 6.9 g/dL (6.3-8.2) 10/16/18 20:12 Albumin 4.1 g/dL (3.9-5) 10/16/18 20:12 Albumin/Globulin Ratio 1.5 % 10/16/18 20:12 HCG, Qual Negative (Negative) 10/16/18 20:12 Urine Color Yellow (Yellow) 10/16/18 22:32 Urine Turbidity Slightly-cloudy (Clear) 10/16/18 22:32 Urine pH 5.0 (5.0-7.0) 10/16/18 22:32 Ur Specific [place] 1.008 (1.003-1.030) 10/16/18 22:32 Urine Protein <15 mg/dl mg/dL (Negative) 10/16/18 22:32 Urine Glucose (UA) Neg mg/dL (Negative) 10/16/18 22:32 Urine Ketones Neg mg/dL (Negative) 10/16/18 22:32 Urine Blood Neg (Negative) 10/16/18 22:32 Urine Nitrite Neg (Negative) 10/16/18 22:32 Urine Bilirubin Neg (Negative) 10/16/18 22:32 Urine Urobilinogen < 2.0 mg/dL (<2.0) 10/16/18 22:32 Ur Leukocyte Esterase Tr (Negative) 10/16/18 22:32 Urine WBC (Auto) 5.0 /HPF (0.0-6.0) 10/16/18 22:32 Urine RBC (Auto) 6.0 /HPF (0.0-6.0) 10/16/18 22:32 U Epithel Cells (Auto) 11.0 /HPF (0-13.0) 10/16/18 22:32 Urine Bacteria (Auto) 1+ /HPF (Negative) 10/16/18 22:32 Urine Mucus Few /HPF 10/16/18 22:32
--- NOTE | 2018-10-20 19:28 | Progress Note ---
Assessment and Plan - Patient Problems (1) Obese Current Visit: Yes Status: Acute Plan to address problem: monitor caloric intake (2) Febrile Current Visit: Yes Status: Acute Plan to address problem: antipyretics (3) Crohn disease Current Visit: Yes Status: Acute Plan to address problem: per. primary service (4) Fever Current Visit: Yes Status: Acute Qualifiers: Fever type: unspecified Qualified Code(s): R50.9 - Fever, unspecified Plan to address problem: per primary service (5) Sepsis Current Visit: Yes Status: Acute Qualifiers: Sepsis type: sepsis due to unspecified organism Qualified Code(s): A41.9 - Sepsis, unspecified organism Plan to address problem: cont. antibx (6) Submandibular gland infection Current Visit: Yes Status: Acute Plan to address problem: cont. antibx (7) Submandibular gland inflammation Current Visit: Yes Status: Acute Plan to address problem: complete steroids, cont. antibx (8) Crohns disease Current Visit: No Status: Acute Plan to address problem: per primary service Subjective Date of service: 10/20/18 Principal diagnosis: facial cellulitis Interval history: Pt. has cont. to receive IV antibx & steroids with significant improvement of facial swelling and trismus. Objective - Constitutional Vitals: Vital Signs - 12hr 10/20/18 10/20/18 10:00 11:30 Temperature 97.1 F L Pulse Rate 48 L Respiratory 20 Rate Blood Pressure 138/78 O2 Sat by Pulse 96 92 Oximetry General appearance: Present: no acute distress, other (obese) - EENT Eyes: PERRL, EOM intact ENT: hearing intact, other (trismus decreased, interincisor diameter approx. 4cm) Ears: bilateral: normal - Neck Neck: other (cellulitis, calor, erythema & tenderness decreased, ) - Respiratory Respiratory effort: normal - Breasts Breasts: deferred - Cardiovascular Rhythm: regular Extremities: no ischemia, pulses intact, pulses symmetrical - Gastrointestinal General gastrointestinal: Present: soft, non-tender, normal bowel sounds Rectal Exam: deferred - Genitourinary Female genitourinary: deferred - Integumentary Integumentary: clear, warm, dry - Musculoskeletal Musculoskeletal: strength equal bilaterally - Neurologic Neurologic: CNII-XII intact - Psychiatric Psychiatric: appropriate mood/affect, intact judgment & insight, memory intact, cooperative (CT neck report & image reviewed) - Labs CBC & Chem 7: 10/19/18 07:08 10/19/18 07:08 Medications & Allergies - Medications Allergies/Adverse Reactions: Allergies promethazine HCl [From Phenergan] Allergy (Verified 08/16/14 23:19) Unknown lorazepam [From Ativan] Adverse Reaction (Verified 04/21/16 15:07) Seizure mushroom Adverse Reaction (Verified 02/21/16 21:26) Unknown ct dye Allergy (Uncoded 05/12/14 21:45) Swelling corn beef Adverse Reaction (Uncoded 02/21/16 21:26) Unknown Home Medications: Home Medications Medication Instructions Recorded Confirmed Last Taken Type Norethindrone AC-Eth Estradiol 1 each PO DAILY 02/21/16 10/18/18 10/14/18 History [Junel 1.5 mg-30 Mcg Tablet] levETIRAcetam [Keppra TAB] 1,000 mg PO BID 30 Days tablet 04/24/16 10/18/18 10/14/18 Rx Famotidine [Pepcid] 20 mg PO BID #20 tablet 07/10/16 10/18/18 10/14/18 Rx HYDROcodone/APAP 5-325 [[place] 1 each PO Q6HR PRN #10 tablet 07/10/16 10/18/18 10/14/18 Rx 5/325] Metoclopramide HCl [Reglan TAB] 5 mg PO BID PRN #20 tablet 07/10/16 10/18/18 10/14/18 Rx Ondansetron [Zofran Odt] 4 mg PO Q8H PRN #10 tab.rapdis 07/10/16 10/18/18 10/14/18 Rx Amoxicillin 500 mg PO BID #14 capsule 10/16/18 10/18/18 10/14/18 Rx Diphenoxylate/Atropine [Lomotil] 2 tab PO QID PRN #20 tablet 10/16/18 10/18/18 10/14/18 Rx HYDROcodone/APAP 5-325 [[place] 1 - 2 each PO Q6HR PRN #14 tablet 10/16/18 10/18/18 10/14/18 Rx 5/325] Ondansetron [Zofran ODT TAB] 8 mg PO Q8HR #20 tab.rapdis 10/16/18 10/18/18 10/14/18 Rx Active Medications: Generic Name Dose Route Start Last Admin Trade Name Freq PRN Reason Stop Dose Admin Acetaminophen 650 mg 10/17/18 00:26 10/18/18 10:33 Tylenol PO 650 mg Q4H PRN Administration Fever >101 Famotidine 20 mg 10/17/18 10:00 10/20/18 09:34 Pepcid PO 20 mg BID EDIN Administration Heparin Sodium (Porcine) 5,000 unit 10/17/18 00:30 10/20/18 09:39 Heparin SUB-Q 5,000 unit Q12HR EDIN Administration Ceftriaxone Sodium 1 gm in 50 mls @ 100 mls/hr 10/17/18 10:00 10/20/18 09:34 Rocephin/Ns 1 Gm/50 Ml IV 100 mls/hr Q24HR EDIN Administration Protocol Sodium Chloride 1,000 mls @ 75 mls/hr 10/17/18 01:00 10/20/18 12:55 Nacl 0.9% 1000 Ml IV 75 mls/hr DIRECT EDIN Administration Clindamycin HCl 900 mg in 50 mls @ 100 mls/hr 10/18/18 10:00 10/20/18 17:34 Cleocin 900 Mg/50 Ml IV 100 mls/hr Q8H EDIN Administration Ibuprofen 800 mg 10/19/18 16:25 10/20/18 08:37 Motrin PO 800 mg Q8H PRN Administration Pain, Mild (1-3) Levetiracetam 1,000 mg 10/17/18 10:00 10/20/18 09:35 Keppra PO 1,000 mg BID EDIN Administration Morphine Sulfate 2 mg 10/18/18 18:18 10/20/18 17:38 Morphine IV 2 mg Q6H PRN Administration Pain, Moderate (4-6) Ondansetron HCl 4 mg 10/17/18 00:27 10/18/18 21:15 Zofran IV 4 mg Q8H PRN Administration Nausea And Vomiting Phenol 1 spray 10/17/18 18:08 10/18/18 10:33 Chloraseptic MM 1 spray PRN PRN Administration Sore Throat Potassium Chloride 20 meq 10/19/18 10:00 10/20/18 09:35 K-Dur PO 20 meq QDAY EDIN Administration Prednisone 20 mg 10/20/18 22:00 Deltasone PO BID EDIN
[2018-10-20] MEDS ORDERED: DELTASONE PO SCH (22:00)
[2018-10-21] MEDS: CLEOCIN 900 MG/50 mL 900 MG/50 ML BAG IV SCH ×2 (01:28→10:11)
[2018-10-21] MEDS: IBUPROFEN PO PRN (05:07)
[2018-10-21] MEDS: NACL 0.9% 1000 ML 1,000 ML IV SCH (05:10)
[2018-10-21 06:09] LABS: Hemoglobin 12.9 gm/dl (10.1-14.3); Mean Corpuscular HGB Conc 34 % (30-34); Mean Corpuscular Volume 90 fl (79-97); Platelet Count 396 K/mm3 (140-440); Red Blood Count 4.21 M/mm3 (3.65-5.03); Red Cell Distribution Width 13.5 % (13.2-15.2)
[2018-10-21 07:53] LABS: Anisocytosis Few; Band Neutrophils # (Manual) 2.4 K/mm3; Basophils % (Manual) 0 % (0.0-1.8); Target Cells Few; Total Cells Counted 100
[2018-10-21] MEDS ORDERED: DELTASONE PO SCH (10:00)
[2018-10-21] MEDS: ROCEPHIN/NS 1 GM/50 ML 1 GM/50 ML BAG IV SCH (10:11)
[2018-10-21] MEDS: K-DUR PO SCH (10:14)
[2018-10-21] MEDS: HEPARIN SUB-Q SCH (10:14)
[2018-10-21] MEDS: KEPPRA PO SCH (10:14)
[2018-10-21] MEDS: PEPCID PO SCH (10:14)
--- NOTE | 2018-10-21 12:11 | Discharge Summary ---
Providers - Providers Date of Admission: 10/16/18 23:27 Date of discharge: 10/21/18 Attending physician: ASHUTOSH COTE 10/18/18 08:48 Consult to Physician [CONS] Routine Comment: Consulting Provider: BRYON ZUÑIGA Physician Instructions: Reason For Exam: Submandibular swelling/ infection Primary care physician: HERB DIGGER Hospitalization Reason for admission: Rt jaw pain and swelling 2 days Condition: Stable Pertinent studies: CT neck wo :soft tissue swelling ,submandibular area,noabscess Hospital course: 28 yr old female patient was admitted through ER with rt sided neck and submandibular area swelling managed with emperic antibiotics and steroids and supportive care.CT neck no abscess, evaluated by ENT and meds optimised., Symptoms significantly improved, cleared by ENT to dc on oral antibiotics and f/u as out pt upon discharge. Today patient is comfortable,Vitals stable, Physical exam is unremarkable. Patient is hemodynamically and clinically stable at discharge Discharge Diagnosis: --Febrile illness/sepsis; secondary to infectious process Continue antibiotics, follow cultures NGTD, afebrile --Right submandibular gland infection/cellulitis; ENT evaluated and recommendations noted and appreciated on Rocephin and clindamycin, and sterods Patient has no difficulty breathing, no stridor, no dysphagia --Leukocytosis; secondary to steroids and underlying inflammatory process --h/o tooth infection; continue antibiotics, patient advised to follow with dentist upon discharge, --Urinary Tract infection; continue current antibiotics follow cultures --Morbid obesity; BMI 45.2, patient advised weight reduction and medically stable --DVT prophylaxis; Lovenox stable to dc and f/u as out patient Advised to see Dentist and ENT upon discharge. Disposition: [place]-01 TO HOME OR SELFCARE Time spent for discharge: 32 min Core Measure Documentation - Palliative Care Palliative Care/ Comfort Measures: Not Applicable - Core Measures Any of the following diagnoses?: none Exam - Constitutional Vitals: Temp Pulse Resp BP Pulse Ox 98.0 F 61 17 160/88 88 10/21/18 05:04 10/21/18 05:04 10/21/18 06:07 10/21/18 05:04 10/21/18 05:04 General appearance: Present: no acute distress, well-nourished, obese - EENT Eyes: Present: PERRL, EOM intact - Neck Neck: Present: supple, normal ROM - Respiratory Respiratory effort: normal Respiratory: bilateral: diminished, negative: rales, rhonchi, wheezing - Cardiovascular Rhythm: regular Heart Sounds: Present: S1 & S2 - Extremities Extremities: no ischemia, No edema - Abdominal General gastrointestinal: Present: soft, non-tender, non-distended, normal bowel sounds - Integumentary Integumentary: Present: clear, warm - Musculoskeletal Musculoskeletal: strength equal bilaterally - Psychiatric Psychiatric: appropriate mood/affect, cooperative - Neurologic Neurologic: CNII-XII intact, moves all extremities Plan Activity: advance as tolerated, fall precautions Diet: regular Additional Instructions: Exercise as tolerated and weight reduction and medically stable. Advised to see private dentist to address your tooth problems. Advised to follow-up private ENT in 3 days upon discharge Follow up with: PRIMARY CARE, [Primary Care Provider] - 3-5 Days BRYON ZUÑIGA MD [Staff Physician] - 7 Days Prescriptions: Clindamycin [Clindamycin CAP] 300 mg PO Q6H #20 capsule Ibuprofen [Motrin 800 MG tab] 800 mg PO Q8H PRN #15 tablet PRN Reason: Pain, Mild (1-3) predniSONE [Deltasone] 10 mg PO QDAY #5 tab
[2018-10-21] MEDS ORDERED: MILK OF MAGNESIA PO PRN (12:15)
[2018-10-21] MEDS ORDERED: DULCOLAX PR PRN (12:16)
[2018-10-21 12:50] VITALS: BP 125/73
== END 2018-10-21 17:00 | disposition home or self-care (01) | DRG 872 ==
LOC: ED 19:33 → 3A 23:27
PROVIDERS: ADMIT Internal Medicine; ATTEND Internal Medicine
PROC: 3E0234Z Introduction of Serum, Toxoid and Vaccine into Muscle, Percutaneous Approach (ICD-10-PCS; principal; 2018-10-18)
DX: A41.9 Sepsis, unspecified organism (principal); K11.20 Sialoadenitis, unspecified; N39.0 Urinary tract infection, site not specified; Z23 Encounter for immunization; Z88.8 Allergy status to other drugs, medicaments and biological substances; Z91.018 Allergy to other foods; F41.9 Anxiety disorder, unspecified; Z90.49 Acquired absence of other specified parts of digestive tract; K11.3 Abscess of salivary gland; K04.7 Periapical abscess without sinus; E66.01 Morbid (severe) obesity due to excess calories; Z68.42 Body mass index [BMI] 45.0-49.9, adult; Z71.3 Dietary counseling and surveillance; G40.909 Epilepsy, unspecified, not intractable, without status epilepticus; K50.90 Crohn's disease, unspecified, without complications; T38.0X5A Adverse effect of glucocorticoids and synthetic analogues, initial encounter; Y92.89 Other specified places as the place of occurrence of the external cause
CPT/HCPCS: 36415; 70490; 71045; 74176; 80048; 80053; 81001; 81025; 82140; 82805; 84703; 85007; 85025; 85610; 87040; 87086; 90686; 90732; 93005; 93010; 96361; 96374; 96375; G0378; J0696; J1100; J1170; J1644; J2270; J2405; J2765; J3010; J7030; J7512

== ENCOUNTER 2018-10-22 17:33 | Emergency (ER) | payer MEDICAID ==
[2018-10-22 17:41] VITALS: BP 151/79
--- NOTE | 2018-10-22 17:41 | Emergency Department Report ---
Chief Complaint: Sore Throat Stated Complaint: SORE THROAT Time Seen by Provider: 10/22/18 17:34 - HPI History of Present Illness: pt dc yesterday states taking meds she did not see Dr Jacome today she called the MD and she was told to come here vss no fever abc intact pt states swelling went down but came back it made her anxious she then had sob and cp to main ed MSE completed MSE screening note: Focused history and physical exam performed. Due to findings the following was ordered: ED Disposition for MSE Condition: Stable
[2018-10-22] MEDS ORDERED: SOLU-Medrol IV ONE (18:17)
[2018-10-22] MEDS ORDERED: CLEOCIN 900 MG/50 mL 900 MG/50 ML BAG IV ONE (18:17)
[2018-10-22] MEDS ORDERED: MORPHINE IV ONE (18:17)
--- NOTE | 2018-10-22 18:35 | Emergency Department Report ---
HPI - General Chief Complaint: Sore Throat Time Seen by Provider: 10/22/18 17:34 - HPI HPI: 28-year-old female presents to the emergency department with a return of right-sided facial swelling. The patient was seen here on 10/16/18 and was admitted for a submandibular space infection and sepsis. The patient was just discharged yesterday after receiving IV antibiotics, steroids and "the swelling basically went down to almost nothing." Patient says that she was sleeping for most of the morning and afternoon and woke up to find that the swelling had "come back with a vengeance." She called her boring mill operator, Dr. Ayaz Francois, who told her to come back to the emergency department. The patient says that she's been taking her antibiotics compliantly. She otherwise has a past medical history of anxiety, Crohn's disease. Patient also says that now she has some chest and back pain that is tender to palpation and feels slightly short of breath. ED Past Medical Hx - Past Medical History Previous Medical History?: Yes Hx Congestive Heart Failure: No Hx Diabetes: No Hx Seizures: Yes Hx Psychiatric Treatment: Yes (anxiety) Hx Asthma: Yes Hx COPD: No Hx HIV: No Additional medical history: crohn's - Surgical History Past Surgical History?: Yes Hx Cholecystectomy: Yes Additional Surgical History: cornea transplant L eye - Social History Smoking Status: Never Smoker Substance Use Type: None - Medications Home Medications: Home Medications Medication Instructions Recorded Confirmed Last Taken Type RX: Norethindrone AC-Eth Estradiol 1 each PO DAILY 02/21/16 10/18/18 10/14/18 History [Junel 1.5 mg-30 Mcg Tablet] RX: levETIRAcetam [Keppra TAB] 1,000 mg PO BID 30 Days tablet 04/24/16 10/18/18 10/14/18 Rx RX: Famotidine [Pepcid] 20 mg PO BID #20 tablet 07/10/16 10/18/18 10/14/18 Rx RX: Ondansetron [Zofran Odt] 4 mg PO Q8H PRN #10 tab.rapdis 07/10/16 10/18/18 10/14/18 Rx RX: Amoxicillin 500 mg PO BID #14 capsule 02/16/19 02/18/19 02/14/19 Rx Clindamycin [Clindamycin CAP] 300 mg PO Q6H #20 capsule 10/21/18 Unknown Rx RX: Ibuprofen [Motrin 800 MG tab] 800 mg PO Q8H PRN #15 tablet 10/21/18 Unknown Rx RX: predniSONE [Deltasone] 10 mg PO QDAY #5 tab 10/21/18 Unknown Rx RX: HYDROcodone/APAP 5-325 [[place] 1 each PO Q6HR PRN #12 tablet 10/22/18 Unknown Rx 5-325 mg TAB] ED Review of Systems ROS: Stated complaint: SORE THROAT Other details as noted in HPI Comment: All other systems reviewed and negative Constitutional: denies: chills, fever Eyes: denies: eye pain, vision change ENT: throat pain. denies: ear pain Respiratory: shortness of breath. denies: cough Cardiovascular: chest pain. denies: palpitations Gastrointestinal: denies: abdominal pain, vomiting Genitourinary: denies: dysuria, frequency Musculoskeletal: back pain. denies: arthralgia Skin: denies: rash, lesions Neurological: denies: headache, weakness Physical Exam - Physical Exam Vital Signs: Vital Signs 10/22/18 17:39 Temperature 98.1 F Pulse Rate 89 Respiratory 18 Rate Blood Pressure 151/79 O2 Sat by Pulse 97 Oximetry Physical Exam: GENERAL: The patient is well-developed well-nourished. HEENT: Normocephalic. Atraumatic. Patient has moist mucous membranes. Oropharynx is clear. No drooling or trismus. EYES: Extraocular motions are intact. Pupils are equal and reactive to light bilaterally. NECK: Supple. Trachea is midline. There is some right-sided submandibular and mandibular swelling. The area is slightly tender to palpation. No erythema, obvious fluctuance. CHEST/LUNGS: Clear to auscultation. There is no respiratory distress noted. HEART/CARDIOVASCULAR: Regular. There is no tachycardia. There is no obvious murmur. ABDOMEN: Abdomen is soft, nontender. Patient has normal bowel sounds. There is no abdominal distention. SKIN: Skin is warm and dry. NEURO: The patient is awake, alert, and oriented. The patient is cooperative. The patient has no focal neurologic deficits. The patient has normal speech. MUSCULOSKELETAL: There is no tenderness or deformity. There is no evidence of acute injury. ED Course Vital Signs 10/22/18 17:39 Temperature 98.1 F Pulse Rate 89 Respiratory 18 Rate Blood Pressure 151/79 O2 Sat by Pulse 97 Oximetry - Consultations Consultation #1: 10/22/18 21:06 I spoke with the boring mill operator previously saw the patient, Dr. Ayaz Francois, regarding the patient's return to the emergency department and the recurrent swelling. She recommends giving a gram of Rocephin, 10 mg of Decadron. She also feels that since the patient does not have a fever or septic appearance, any drooling or trismus, the patient is safe for discharge home for outpatient follow-up. ED Medical Decision Making - Lab Data Result diagrams: 10/22/18 17:53 10/22/18 17:53 - EKG Data -: EKG Interpreted by Me EKG shows normal: sinus rhythm, axis, intervals, QRS complexes, ST-T waves Rate: normal - EKG Data When compared to previous EKG there are: previous EKG unavailable Interpretation: normal EKG - Radiology Data Radiology results: image reviewed interpreted by me: Chest x-ray shows some atelectasis of the bilateral bases but otherwise no obvious pneumonia, pleural effusions, focal consolidation or pneumothorax. - Medical Decision Making Patient presents to the emergency department with a return of the right-sided facial and neck swelling that kept her in the hospital for the last week and the patient was discharged yesterday. However, when she was first admitted the patient fit more of a septic picture as she was febrile, tachycardic, along with the swelling. The patient was evaluated at that time by primary care, ot olaryngology. This time, the patient does not fit the septic picture. Patient does not have any fever, tachycardia. On examination she has no drooling or trismus. There is some right-sided submandibular and mild mandibular swelling. There is no erythema, obvious fluctuance. Patient's labs are mostly unremarkable. She does have a leukocytosis of 15,000 but this is decreased from her previous visit and the patient has been on chronic steroids. She has a normal metabolic panel, negative troponin. EKG did not show any signs of ST elevation RI, ischemia or dysrhythmia. I spoke with the boring mill operator, Dr. Jacome, who feels that the patient is safe for discharge home but recommended add ing Rocephin, Decadron. The patient will follow up with otolaryngology and a dentist. She still has clindamycin, steroids at home to take. She's been given a prescription for some pain medication. She will return to the ER if any worsening of her symptoms or any acute distress. - Differential Diagnosis lymphadenopathy, abscess, cellulitis Critical Care Time: No Critical care attestation.: If time is entered above; I have spent that time in minutes in the direct care of this critically ill patient, excluding procedure time. ED Disposition Clinical Impression: Submandibular gland inflammation, Submandibular swelling, Dental disease Disposition: TO HOME OR SELFCARE Is pt being admited?: No Condition: Stable Additional Instructions: Please follow up with Dr. Jacome, ENT, as well as a dentist. You should also follow up with a primary care physician. Continue taking the antibiotics. Return to the emergency Department with any worsening of your symptoms including any increased swelling, drooling, or development of fever, or if any acute distress. You have been prescribed a medication that can be sedating. Therefore, this medication cannot be taken prior to driving, working, being responsible for children, and cannot be mixed with alcohol of any quantity. Prescriptions: RX: HYDROcodone/APAP 5-325 [[place] 5-325 mg TAB] 1 each PO Q6HR PRN #12 tablet PRN Reason: Pain Referrals: BRYON ZUÑIGA MD [Staff Physician] - 2-3 Days [facility] [Outside] - 2-3 Days [facility] [Outside] - 2-3 Days Time of Disposition: 21:09
[2018-10-22 18:40] LABS: Hematocrit 41.2 % (30.3-42.9); Mean Corpuscular HGB Conc 34 % (30-34); Mean Corpuscular Volume 90 fl (79-97); Platelet Count 387 K/mm3 (140-440); Red Blood Count 4.57 M/mm3 (3.65-5.03); Red Cell Distribution Width 13.6 % (13.2-15.2)
[2018-10-22 18:58] LABS: Alanine Aminotransferase 33 units/L (7-56); Albumin 3.7 g/dL (3.9-5); BUN/Creatinine Ratio 20; Blood Urea Nitrogen 10 mg/dL (7-17); Calcium 8.7 mg/dL (8.4-10.2); Hemolysis Index 55
--- NOTE | 2018-10-22 19:43 | XRay Report ---
FINAL REPORT EXAM: XR CHEST ROUTINE 2V HISTORY: CP TECHNIQUE: Chest two views PRIORS: None. FINDINGS: Cardiac and mediastinal contours are unremarkable. There is linear opacity at both lung bases more pr ominent on the left. Pulmonary vasculature is unremarkable. No evidence for pneumothorax. IMPRESSION: Bilateral basilar atelectasis/infiltrate more prominent left
[2018-10-22 19:45] LABS: Basophils % (Manual) 0 % (0.0-1.8); Total Cells Counted 100
[2018-10-22 19:46] LABS: Anisocytosis 1+; Ovalocytes Few; Poikilocytosis Few
[2018-10-22] MEDS ORDERED: ROCEPHIN/NS 1 GM/50 ML 1 GM/50 ML BAG IV ONE (19:50)
[2018-10-22] MEDS ORDERED: DECADRON IV ONE (19:50)
== END 2018-10-22 21:20 | disposition home or self-care (01) ==
LOC: ED 17:33
DX: K11.8 Other diseases of salivary glands (principal); F41.9 Anxiety disorder, unspecified; J45.909 Unspecified asthma, uncomplicated; K50.90 Crohn's disease, unspecified, without complications; Z90.49 Acquired absence of other specified parts of digestive tract; Z91.018 Allergy to other foods; Z88.8 Allergy status to other drugs, medicaments and biological substances
CPT/HCPCS: 36415; 71046; 80053; 82140; 84484; 85007; 85025; 93005; 93010; 96365; 96367; 96375; 99284; J0696; J1100; J2270; J2930

== ENCOUNTER 2019-06-09 18:11 | Observation (INO) | payer MEDICAID ==
--- NOTE | 2019-06-09 18:55 | Event Note ---
ED Screening Note Date of service: 06/09/19 Time: 18:51 ED Screening Note: 29 y/o female that is 19 weeks preg comes in for abdominal pain. LMP 01/12/19 No vaginal discharge but having some mucus discharge. This initial assessment/diagnostic orders/clinical plan/treatment(s) is/are subject to change based on patients health status, clinical progression and re- assessment by fellow clinical providers in the ED. Further treatment and workup at subsequent clinical providers discretion. Patient/guardian urged not to elope from the ED as their condition may be serious if not clinically assessed and managed. Initial orders include:
--- NOTE | 2019-06-09 20:02 | Emergency Department Report ---
ED HPI - General Chief complaint: Abdominal Pain Stated complaint: 19WKS PREG/ABD PAIN/MUCUS LEAKAGE Time Seen by Provider: 06/09/19 18:51 Source: patient Mode of arrival: Ambulatory Limitations: No Limitations - History of Present Illness Initial comments: is a 29-year-old female that presents emergency room with complaints of lower abdominal pain and contractions patient states she is 19 weeks . Patient states she had a amniocentesis yesterday. Patient states that this morning the cramping started and contractions. Patient states she is also having a vaginal discharge which looks like a mucous substance. Patient states that her symptoms are becoming more frequent. Patient states the pain is intermittent. Patient states that when she has the pain is a 7 out of 10. Patient states the pain is better with rest and worse with exertion and movement. Patient's MALT HOUSE LOADER is Dr. Georgette Irving Patient's perinatologist is at [facility] in [place], Dr. Rodriguez. Kemal Sommer MD Complaint: abdominal pain, vaginal discharge, "contractions" -: Sudden Location: pelvis, abdomen Radiation: suprapubic Severity: severe Severity scale (0 -10): 7 Quality: cramping Consistency: intermittent Improves with: rest Worsens with: movement Associated symptoms: vaginal discharge, abdominal pain. denies: nausea/vomiting, vaginal bleeding, dysuria, headache, vision changes, malaise, dysparuenia, rash, seizure, shortness of breath, syncope, weakness Vaginal bleeding: none :: Yes Number of weeks : 19 (by us and lmp with thread trimmer) OB History - Current : other OB History - Previous Pregnancies: no complications Pre-jono care: followed by OB, previous ultrasound confi - Related Data : 3 Para: 2 Home Medications Medication Instructions Recorded Confirmed Last Taken Norethindrone AC-Eth Estradiol 1 each PO DAILY 02/21/16 10/18/18 10/14/18 [Junel 1.5 mg-30 Mcg Tablet] Previous Rx's Medication Instructions Recorded Last Taken Type levETIRAcetam [Keppra TAB] 1,000 mg PO BID 30 Days tablet 04/24/16 10/14/18 Rx Famotidine [Pepcid] 20 mg PO BID #20 tablet 07/10/16 10/14/18 Rx Ondansetron [Zofran Odt] 4 mg PO Q8H PRN #10 tab.rapdis 07/10/16 10/14/18 Rx Amoxicillin 500 mg PO BID #14 capsule 10/16/18 10/14/18 Rx Clindamycin [Clindamycin CAP] 300 mg PO Q6H #20 capsule 10/21/18 Unknown Rx Ibuprofen [Motrin 800 MG tab] 800 mg PO Q8H PRN #15 tablet 10/21/18 Unknown Rx predniSONE [Deltasone] 10 mg PO QDAY #5 tab 10/21/18 Unknown Rx HYDROcodone/APAP 5-325 [[place] 1 each PO Q6HR PRN #12 tablet 10/22/18 Unknown Rx 5-325 mg TAB] Allergies Allergy/AdvReac Type Severity Reaction Status Date / Time promethazine HCl Allergy Unknown Verified 08/16/14 23:19 [From Phenergan] lorazepam [From Ativan] AdvReac Seizure Verified 04/21/16 15:07 mushroom AdvReac Unknown Verified 02/21/16 21:26 ct dye Allergy Swelling Uncoded 05/12/14 21:45 corn beef AdvReac Unknown Uncoded 02/21/16 21:26 ED Review of Systems ROS: Stated complaint: 19WKS PREG/ABD PAIN/MUCUS LEAKAGE Other details as noted in HPI Constitutional: denies: chills, fever Eyes: denies: eye pain, eye discharge, vision change ENT: denies: ear pain, throat pain Respiratory: denies: cough, shortness of breath, wheezing Cardiovascular: denies: chest pain, palpitations Endocrine: no symptoms reported Gastrointestinal: abdominal pain. denies: nausea, diarrhea Genitourinary: discharge. denies: urgency, dysuria Musculoskeletal: denies: back pain, joint swelling, arthralgia Skin: denies: rash, lesions Neurological: denies: headache, weakness, paresthesias Psychiatric: denies: anxiety, depression Hematological/Lymphatic: denies: easy bleeding, easy bruising ED Past Medical Hx - Past Medical History Previous Medical History?: Yes Hx Congestive Heart Failure: No Hx Diabetes: No Hx Seizures: Yes Hx Psychiatric Treatment: Yes (anxiety) Hx Asthma: Yes Hx COPD: No Hx HIV: No Additional medical history: crohn's - Surgical History Past Surgical History?: Yes Hx Cholecystectomy: Yes Additional Surgical History: cornea transplant L eye - Family History Family history: no significant - Social History Smoking Status: Never Smoker Substance Use Type: None - Medications Home Medications: Home Medications Medication Instructions Recorded Confirmed Last Taken Type Norethindrone AC-Eth Estradiol 1 each PO DAILY 02/21/16 10/18/18 10/14/18 History [Junel 1.5 mg-30 Mcg Tablet] levETIRAcetam [Keppra TAB] 1,000 mg PO BID 30 Days tablet 04/24/16 10/18/18 10/14/18 Rx Famotidine [Pepcid] 20 mg PO BID #20 tablet 07/10/16 10/18/18 10/14/18 Rx Ondansetron [Zofran Odt] 4 mg PO Q8H PRN #10 tab.rapdis 07/10/16 10/18/18 10/14/18 Rx Amoxicillin 500 mg PO BID #14 capsule 10/16/18 10/18/18 10/14/18 Rx Clindamycin [Clindamycin CAP] 300 mg PO Q6H #20 capsule 10/21/18 Unknown Rx Ibuprofen [Motrin 800 MG tab] 800 mg PO Q8H PRN #15 tablet 10/21/18 Unknown Rx predniSONE [Deltasone] 10 mg PO QDAY #5 tab 10/21/18 Unknown Rx HYDROcodone/APAP 5-325 [[place] 1 each PO Q6HR PRN #12 tablet 10/22/18 Unknown Rx 5-325 mg TAB] ED Physical Exam - General Limitations: No Limitations General appearance: alert, in no apparent distress - Head Head exam: Present: atraumatic, normocephalic - Eye Eye exam: Present: normal appearance - ENT ENT exam: Present: mucous membranes moist - Neck Neck exam: Present: normal inspection - Respiratory Respiratory exam: Present: normal lung sounds bilaterally. Absent: respiratory distress - Cardiovascular Cardiovascular Exam: Present: regular rate, normal rhythm. Absent: systolic murmur, diastolic murmur, rubs, gallop - GI/Abdominal GI/Abdominal exam: Present: soft, tenderness (suprapubic ttp), normal bowel sounds - Extremities Exam Extremities exam: Present: normal inspection - Back Exam Back exam: Present: normal inspection - Neurological Exam Neurological exam: Present: alert, oriented X3 - Psychiatric Psychiatric exam: Present: normal affect, normal mood - Skin Skin exam: Present: warm, dry, intact, normal color. Absent: rash ED Course Vital Signs 10/10/19 10/10/19 10/10/19 18:51 21:30 22:00 Temperature 98.5 F 98.2 F Pulse Rate 81 76 69 Respiratory 16 16 25 H Rate Blood Pressure 108/60 96/51 Blood Pressure 100/60 [Left] O2 Sat by Pulse 96 100 99 Oximetry - Reevaluation(s) Reevaluation #1: I discussed all results with patient.. I discussed plan of care with patient. Patient agrees plan of care and admission. Patient will be admitted to the [employer] service. 06/09/19 22:04 - Consultations Consultation #1: cut out worker paged 06/09/19 21:50 Dr Lawson director of education for for Dr. Camp's service. Dr. Lawson recommends admission and will admit the patient. 06/09/19 21:59 ED Medical Decision Making - Lab Data Result diagrams: 06/09/19 20:07 06/09/19 18:58 - Radiology Data Radiology results: report reviewed ULTRASOUND OBSTETRIC Indication: 19 weeks preg with abd pain. Severe pelvic pain with Findings: There is a single intrauterine . BPD = 3.7 cm = 17 weeks, 1 day(s). Head circumference = 14.5 cm = 17 weeks, 5 day(s). Abdominal circumference = 11.6 cm = 17 weeks, 3 day(s). Femur length = 2.6 cm = 17 weeks, 6 day(s). Overall estimated sonographic age = 17 weeks, 4 day(s). heart rate is 137 beats per minute. Cervical length is 3.6 cm The amniotic fluid is within normal limits. The fetus is in breech position. The placenta is grade 0 placenta is in the fundal position. The gestational age of the fetus is too early for anatomic evaluation at this time. Close evaluation of the anatomy on subsequent imaging is suggested. Impression: 1. Single living intrauterine with estimated sonographic age of 17 weeks, 4 day(s). 2. No acute sonographic abnormality identified. - Medical Decision Making Patient is a 29-year-old female that presents emergency room with abdominal cramps and contraction and abnormal fluid per the vagina. Patient describes food is a mucous. Patient had an ultrasound done which shows a 17 week and 4 day IUP with an open cervix. MALT HOUSE LO[employer]ER consult and Dr. Lawson to admit the patient. Patient given fluids and IV started in the ER. Patient's labs essentially unremarkable. Had amniocentesis centesis yesterday. - Differential Diagnosis abdominal cramping. Threatened miscarriage. Critical Care Time: Yes Critical care attestation.: If time is entered above; I have spent that time in minutes in the direct care of this critically ill patient, excluding procedure time. Critical Care Time: 35 minutes ED Disposition Clinical Impression: Abdominal cramps, Abnormal vaginal fluids, H/O amniocentesis, Threatened miscarriage Abdominal pain Qualifiers: Abdominal location: lower abdomen, unspecified Qualified Code(s): R10.30 - Lower abdominal pain, unspecified Qualifiers: Weeks of gestation: 19 weeks Qualified Code(s): Z3A.19 - 19 weeks gestation of Disposition: OP ADMIT IP TO THIS HOSP Is pt being admited?: Yes Does the pt Need Aspirin: No Condition: Critical Time of Disposition: 22:03
[2019-06-09 20:15] LABS: Hematocrit 36.5 % (30.3-42.9); Hemoglobin 12.6 gm/dl (10.1-14.3); Mean Corpuscular HGB Conc 35 % (30-34); Mean Corpuscular Volume 91 fl (79-97); Platelet Count 296 K/mm3 (140-440); Red Blood Count 4.01 M/mm3 (3.65-5.03)
[2019-06-09 20:34] LABS: Alanine Aminotransferase 6 units/L (7-56); Albumin 3.8 g/dL (3.9-5); BUN/Creatinine Ratio 10; Blood Urea Nitrogen 5 mg/dL (7-17); Calcium 9.1 mg/dL (8.4-10.2); Hemolysis Index 10
--- NOTE | 2019-06-09 20:44 | Ultrasound Report ---
ULTRASOUND OBSTETRIC Indication: 19 weeks preg with abd pain. Severe pelvic pain with Findings: There is a single intrauterine . BPD = 3.7 cm = 17 weeks, 1 day(s). Head circumference = 14.5 cm = 17 weeks, 5 day(s). Abdominal circumference = 11.6 cm = 17 weeks, 3 day(s). Femur length = 2.6 cm = 17 weeks, 6 day(s). Overall estimated sonographic age = 17 weeks, 4 day(s). heart rate is 137 beats per minute. Cervical length is 3.6 cm The amniotic fluid is within normal limits. The fetus is in breech position. The placenta is grade 0 placenta is in the fundal position. The gestational age of the fetus is too early for anatomic evaluation at this time. Close evaluation of the anatomy on subsequent imaging is suggested. Impression: 1. Single living intrauterine with estimated sonographic age of 17 weeks, 4 day(s). 2. No acute sonographic abnormality identified. Signer Name: Avtar Ybarra MD Signed: 06/09/2019 8:40 PM Workstation Name: [id number][id number]
[2019-06-09 21:59] LABS: Bilirubin,Urine NEG (Negative); Blood,Urine NEG (Negative); Color,Urine Yellow (Yellow); Mucus,Urine 1+ /HPF; Protein,Urine <15 mg/dL mg/dL (Negative); Urobilinogen,Urine < 2.0 mg/dL (<2.0)
[2019-06-09] MEDS ORDERED: COLACE PO PRN (22:04)
[2019-06-09] MEDS ORDERED: NACL 0.9% 1000 ML 1,000 ML IV ONE (22:04)
[2019-06-09] MEDS ORDERED: TYLENOL PO PRN (22:04)
[2019-06-09] MEDS ORDERED: LACTATED RINGERS 1,000 ML IV SCH (23:00)
--- NOTE | 2019-06-10 08:45 | History and Physical Report ---
History of Present Illness Date of examination: 06/10/19 Date of admission: 06/09/19 22:05 Chief complaint: cramping, vaginal discharge History of present illness: Pt is a 29 year old female NETO 11/03/19 at 19w1d who presented last night with complaint of cramping and clear mucoid discharge. She has had care with Dr Georgette Irving which she reports has been complicated by abnormal cranial anatomy. She reports having an amniocentesis on Thu06/08/19 without issue with minimal cramping. She observed bed rest for 24 hrs. She was in her usual state of health until the afternoon on 06/09/19 when she began to feel cramping every 5 minutes and had a mucoid discharge that was not present before. Her records are not available for review. Since admission, the patient had an ultrasound which showed a viable fetus and a cervical length of 3.6 cm. She was placed on bedrest with continuous tocometry and with IV fluid administration. Today, the patient reports that her cramping and mucoid discharge have both resolved. Past History Past Medical History: seizure, other (Crohn's Disease) Past Surgical History: no surgical history Family/Genetic History: heart disease Social history: no significant social history - Obstetrical History Expected Date of Delivery: 11/03/19 Actual Gestation: 19 Week(s) 1 Day(s) : 5 Para: 3 Hx # Term Pregnancies: 1 Number of Pregnancies: 2 Spontaneous Abortions: 1 Induced : 0 Number of Living Children: 3 Medications and Allergies Allergies Allergy/AdvReac Type Severity Reaction Status Date / Time promethazine HCl Allergy Unknown Verified 08/16/14 23:19 [From Phenergan] lorazepam [From Ativan] AdvReac Seizure Verified 04/21/16 15:07 mushroom AdvReac Unknown Verified 02/21/16 21:26 ct dye Allergy Swelling Uncoded 05/12/14 21:45 corn beef AdvReac Unknown Uncoded 02/21/16 21:26 Home Medications Medication Instructions Recorded Confirmed Last Taken Type Norethindrone AC-Eth Estradiol 1 each PO DAILY 02/21/16 10/18/18 10/14/18 History [Junel 1.5 mg-30 Mcg Tablet] levETIRAcetam [Keppra TAB] 1,000 mg PO BID 30 Days tablet 04/24/16 10/18/18 10/14/18 Rx Famotidine [Pepcid] 20 mg PO BID #20 tablet 07/10/16 10/18/18 10/14/18 Rx Ondansetron [Zofran Odt] 4 mg PO Q8H PRN #10 tab.rapdis 07/10/16 10/18/18 10/14/18 Rx Amoxicillin 500 mg PO BID #14 capsule 10/16/18 10/18/18 10/14/18 Rx Clindamycin [Clindamycin CAP] 300 mg PO Q6H #20 capsule 10/21/18 Unknown Rx Ibuprofen [Motrin 800 MG tab] 800 mg PO Q8H PRN #15 tablet 10/21/18 Unknown Rx predniSONE [Deltasone] 10 mg PO QDAY #5 tab 10/21/18 Unknown Rx HYDROcodone/APAP 5-325 [Jadwin 1 each PO Q6HR PRN #12 tablet 10/22/18 Unknown Rx 5-325 mg TAB] Active Meds: Active Medications Acetaminophen (Tylenol) 650 mg PO Q4H PRN PRN Reason: Pain MILD(1-3)/Fever >100.5/CASTANEDA Last Admin: 06/10/19 01:04 Dose: 650 mg Documented by: Docusate Sodium (Colace) 100 mg PO Q12H PRN PRN Reason: Constipation Lactated Ringer's (Lactated Ringers) 1,000 mls @ 125 mls/hr IV DIRECT EDIN Last Admin: 06/10/19 05:01 Dose: 125 mls/hr Documented by: Multivitamins/Iron/Calcium ( Vitamin) 1 each PO QDAY EDIN Review of Systems All systems: negative - Vital Signs Vital signs: Vital Signs Temp Pulse Resp BP Pulse Ox 98.5 F 81 16 108/60 96 06/09/19 18:51 06/09/19 18:51 06/09/19 18:51 06/09/19 18:51 06/09/19 18:51 Temp Pulse Resp BP Pulse Ox 98.3 F 87 18 107/55 97 06/09/19 23:20 06/10/19 08:29 06/10/19 01:49 06/10/19 07:13 06/10/19 08:29 - Physical Exam Breasts: Positive: deferred Cardiovascular: Regular rate Lungs: Positive: Clear to auscultation Abdomen: Positive: soft (obese, gravid ) Genitourinary (Female): Positive: normal external genitalia Vagina: Positive: discharge (white vaginal discharge, pt reports this has been present since using vaginalp progesterone for about 3 wks ) Cervix: Negative: lesion Uterus: Positive: enlarged (gravid ) Extremities: Positive: normal - Obstetrical FHR: auscultation normal Uterine Contraction Monitor Mode: External Uterine Contraction Pattern: Absent Uterine Tone Measurement Phase: Resting Results Result Diagrams: 06/09/19 20:07 06/09/19 18:58 Abnormal lab results 06/09/19 06/09/19 06/09/19 Range/Units 18:58 18:58 20:07 MCHC 35 H (30-34) % Carbon Dioxide 20 L (22-30) mmol/L BUN 5 L (7-17) mg/dL Creatinine 0.5 L (0.7-1.2) mg/dL Glucose 115 H (65-100) mg/dL ALT 6 L (7-56) units/L Albumin 3.8 L (3.9-5) g/dL HCG, Quant 5423 H (0-4) mIU/mL U Epithel Cells (Auto) (0-13.0) /HPF 06/09/19 Range/Units 21:18 MCHC (30-34) % Carbon Dioxide (22-30) mmol/L BUN (7-17) mg/dL Creatinine (0.7-1.2) mg/dL Glucose (65-100) mg/dL ALT (7-56) units/L Albumin (3.9-5) g/dL HCG, Quant (0-4) mIU/mL U Epithel Cells (Auto) 14.0 H (0-13.0) /HPF All other labs normal. Assessment and Plan A: IUP at 19w0d Cramping and vaginal discharge after amniocentesis; resolved since admission Speculum exam without evidence of PPROM Crohn's Disease Seizure Disorder P: Repeat ultrasound to ensure adequate amniotic fluid and cervical length If normal, discharge home with follow up at scheduled appt on Thursday06/13/[address] Georgette Irving
--- NOTE | 2019-06-10 09:42 | Ultrasound Report ---
ULTRASOUND OB LIMITED HISTORY: Intrauterine at 19 weeks, evaluate cervical length and NICK TECHNIQUE: Transabdominal ultrasound with M-mode and color Doppler imaging. FINDINGS: A single intrauterine is identified in cephalic position. The placenta is anterio r, grade 0. Amniotic fluid volume measures 15.2 cm. heart rate measures 141 bpm. The cervix is closed and measures 5.3 cm in length. IMPRESSION: No acute abnormality. NICK equal 15.2 cm. Signer Name: Geo Crockett Jr, MD Signed: 06/10/2019 9:38 AM Workstation Name: [id number]
[2019-06-10] MEDS ORDERED: PRENATAL VITAMIN PO SCH (10:00)
[2019-06-10 10:32] VITALS: BP 107/59
--- NOTE | 2019-06-10 15:27 | Event Note ---
Date: 06/10/19 Late entry. Repeat ultrasound showed single viable fetus with NICK 15 cm and cervical length 5.3 cm. She will be discharged home with close follow up.
--- NOTE | 2019-06-10 15:29 | Short Stay Summary ---
Short Stay Documentation Date of service: 06/10/19 - History H&P: dictated Social history: no significant social history - Allergies and Medications Current Medications: Allergies promethazine HCl [From Phenergan] Allergy (Verified 08/16/14 23:19) Unknown lorazepam [From Ativan] Adverse Reaction (Verified 04/21/16 15:07) Seizure mushroom Adverse Reaction (Verified 02/21/16 21:26) Unknown ct dye Allergy (Uncoded 05/12/14 21:45) Swelling corn beef Adverse Reaction (Uncoded 02/21/16 21:26) Unknown Home Medications Medication Instructions Recorded Confirmed Last Taken Type Norethindrone AC-Eth Estradiol 1 each PO DAILY 02/21/16 10/18/18 10/14/18 History [Junel 1.5 mg-30 Mcg Tablet] levETIRAcetam [Keppra TAB] 1,000 mg PO BID 30 Days tablet 04/24/16 10/18/18 10/14/18 Rx Famotidine [Pepcid] 20 mg PO BID #20 tablet 07/10/16 10/18/18 10/14/18 Rx Ondansetron [Zofran Odt] 4 mg PO Q8H PRN #10 tab.rapdis 07/10/16 10/18/18 10/14/18 Rx Amoxicillin 500 mg PO BID #14 capsule 10/16/18 10/18/18 10/14/18 Rx Clindamycin [Clindamycin CAP] 300 mg PO Q6H #20 capsule 10/21/18 Unknown Rx Ibuprofen [Motrin 800 MG tab] 800 mg PO Q8H PRN #15 tablet 10/21/18 Unknown Rx predniSONE [Deltasone] 10 mg PO QDAY #5 tab 10/21/18 Unknown Rx HYDROcodone/APAP 5-325 [Rotan 1 each PO Q6HR PRN #12 tablet 10/22/18 Unknown Rx 5-325 mg TAB] - Physical exam Breasts: deferred - Hospital course Hospital course: Pt was admitted for cramping and vaginal discharge after amniocentesis at 19 wks. With bedrest and IV hydration, the patient's symptoms of cramping and vaginal discharge resolved. She has two ultrasounds which both showed a long closed cervix and adequate amniotic fluid volume. Speculum exam revealed thin white discharge which pt reported has been present for 3 wks since she began vaginal progesterone supplementation. She was discharged home with follow up on Thursday with Dr Irving. - Disposition Condition at discharge: Good Disposition: [id number] TO HOME OR SELFCARE - Discharge Diagnoses (1) Vaginal discharge Status: Acute (2) Abdominal cramps Status: Acute (3) Crohn disease Status: Acute Qualifiers: Gastrointestinal tract location: unspecified location Digestive disease complication type: unspecified complication Qualified Code(s): K50.919 - Crohn's disease, unspecified, with unspecified complications (4) H/O amniocentesis Status: Acute Short Stay Discharge Plan Activity: other (Bedrest) Weight Bearing Status: Full Weight Bearing Diet: regular Follow up with: PRIMARY CARE, [Primary Care Provider] - 7 Days ALLEN IRVING MD [Staff Physician] - 06/13/19 (As scheduled ) Forms: [facility] Discharge Summary
== END 2019-06-10 10:31 | disposition home or self-care (01) ==
LOC: ED 18:11 → LD 22:05
PROVIDERS: ADMIT Obstetrics & Gynecology; ATTEND Obstetrics & Gynecology
DX: O26.892 Other specified pregnancy related conditions, second trimester (principal); N89.8 Other specified noninflammatory disorders of vagina; R10.30 Lower abdominal pain, unspecified; O99.352 Diseases of the nervous system complicating pregnancy, second trimester; O99.612 Diseases of the digestive system complicating pregnancy, second trimester; K50.90 Crohn's disease, unspecified, without complications; G40.909 Epilepsy, unspecified, not intractable, without status epilepticus; Z3A.19 19 weeks gestation of pregnancy
CPT/HCPCS: 36415; 76805; 76815; 80053; 81001; 84702; 85027; 86850; 86900; 86901; 99291; G0378; J7030; J7120